=== PATIENT | male | born 1955 | race African-American/Black ===

== ENCOUNTER → 2018-06-10 09:36 | Outpatient (CLI) | payer BC, OTHER, SELFPAY ==
[2018-06-10 14:06] LABS: Basophils # 0.1 K/mm3 (0-0.2); Basophils % 1.5 % (0.1-2.0); Eosinophils # 0.2 K/mm3 (0.0-0.4); Eosinophils % 3.3 % (0.1-12.0); Hematocrit 44.7 % (42.0-52.0); Hemoglobin 14.7 g/dL (14.1-18.0); Lymphocytes # 2.3 K/mm3 (0.7-4.5); Lymphocytes % 39.8 K/mm3 (10-50); Mean Corpuscular HGB Conc 32.9 g/dL (31.8-35.4); Mean Corpuscular Hemoglobin 28.6 pg (27.0-31.2); Mean Platelet Volume 8.2 fl (7.4-10.4); Monocytes # 0.5 K/mm3 (0.1-1.0); Monocytes % 7.9 % (1.7-9.3); Neutrophils # 2.7 K/mm3 (1.8-7.8); Neutrophils % 47.5 % (37.0-80.0); Platelet Count 261 K/mm3 (142-424); Red Blood Count 5.14 M/mm3 (4.60-6.20); Red Cell Distribution Width 13.5 % (11.5-17.5); White Blood Count 5.7 K/mm3 (4.8-10.8)
[2018-06-10 14:13] LABS: Alanine Aminotransferase 60 U/L (12-78); Albumin/Globulin Ratio 1.1 (1.1-1.8); Alkaline Phosphatase 97 U/L (46-116); Aspartate Amino Transferase 26 U/L (15-37); Bilirubin,Total 0.5 mg/dL (0.2-1.0); Blood Urea Nitrogen 12 mg/dL (7-18); Calcium 9.2 mg/dL (8.5-10.1); Carbon Dioxide 27 mmol/L (21.0-32.0); Chloride 102 mmol/L (98-107); Chol/HDL Ratio 3.8 (1-3.5); Cholesterol 179 mg/dL (140-200); Creatinine,Serum 1.31 mg/dL (0.70-1.30); Estimated Glomerular Filt Rate 55 ml/min (>60); GFR (African American) 67 ML/MIN (>60); Globulin 3.7 gm/dl (1.3-3.2); Glucose 94 mg/dL (74-106); HDL Cholesterol 47 mg/dL (27-67); LDL Cholesterol 100 mg/dL (0-130); Sodium 139 mmol/L (136-145); T4 (Thyroxine) 7.5 ug/dl (4.7-13.3); Total Protein,Serum 7.7 gm/dL (6.4-8.2); Triglycerides 161 mg/dL (30-200); VLDL Cholesterol 32 mg/dL (0-40)
[2018-06-11 20:05] LABS: PSA, Free 0.43 ng/mL; Prostate Specific Ag 1.5 ng/mL (0.0-4.0); Vitamin D 25 Hydroxy 20.1 ng/mL (30.0-100.0)
== END ==
PROVIDERS: Visit Provider Physician Assistant
DX: E78.5 Hyperlipidemia, unspecified (principal); I10 Essential (primary) hypertension
CPT/HCPCS: 80053; 80061; 82652; 84153; 84154; 84436; 84443; 85025

== ENCOUNTER → 2018-06-25 14:18 | Outpatient (CLI) | payer BC, OTHER, SELFPAY ==
--- NOTE | 2018-06-25 14:25 | MR_ITS ---
MR lumbar spine wo con, MR 3-d myelogram/MRCP HISTORY: Low back pain . Bilateral leg pain, bilateral leg and feet numbness and cramping. Prior back surgery . ITS.REASON: lumbago with sciatica h/o fusion ORDERING PHYSICIAN: HTAD Cabrera PATIENT AGE: 62 years Comparison: None TECHNIQUE: Standard multiplanar multiecho sequences are performed without contrast. 3-D MIP and myelographic images are also rendered and reviewed FINDINGS: There is normal alignment. There is metallic artifact at T11 with posterior interpedicular screws at that region causing moderate amount of artifact The spinal cord ends at L1. There is mild degenerative disc disease at T11-T12 with prominence of the posterior longitudinal ligament. This disc space is not well delineated due to overlying artifact and may be better evaluated with CT if clinically warranted. L1-L2, L2-L3 have an unremarkable appearance. L3-L4: Bulging disc. There is a small left paracentral disc osteophyte complex causing moderate to severe left-sided lateral recess narrowing. There is facet and ligamentum flavum hypertrophy with moderate to severe right-sided foraminal narrowing and moderate left foraminal narrowing. There is transverse narrowing of the canal at this level from the facet and ligamentum hypertrophy at approximately 9 mm. There is some bunching of the nerve roots superior to this region as may be seen with spinal stenosis L4-L5: Moderate facet and ligamentum flavum hypertrophy with mild bulging disc with transverse narrowing of the canal at 9 mm with moderate to severe right foraminal narrowing and moderate left foraminal narrowing. L5-S1: Mild concentric bulging disc along with moderate facet and ligamentum flavum hypertrophy with severe bilateral foraminal narrowing. IMPRESSION: 1. Postsurgical changes at T11 and T12. 2. L3-L4: Bulging disc. There is a small left paracentral disc osteophyte complex causing moderate to severe left-sided lateral recess narrowing. There is facet and ligamentum flavum hypertrophy with moderate to severe right-sided foraminal narrowing and moderate left foraminal narrowing. There is transverse narrowing of the canal at this level from the facet and ligamentum hypertrophy at approximately 8 mm. There is some bunching of the nerve roots superior to this region as may be seen with spinal stenosis. 3. L4-L5: Moderate facet and ligamentum flavum hypertrophy with mild bulging disc with transverse narrowing of the canal at 9 mm with moderate to severe right foraminal narrowing and moderate left foraminal narrowing. 4. L5-S1: Mild concentric bulging disc along with moderate facet and ligamentum flavum hypertrophy with severe bilateral foraminal narrowing
== END ==
PROVIDERS: PCP Physician Assistant; Visit Provider Physician Assistant
DX: M54.41 Lumbago with sciatica, right side (principal); M54.42 Lumbago with sciatica, left side
CPT/HCPCS: 72148; 76376

== ENCOUNTER → 2019-04-05 18:05 | Outpatient (CLI) | payer BC, OTHER, SELFPAY ==
[2019-04-05 18:27] LABS: Basophils # 0.1 K/mm3 (0-0.2); Basophils % 1.5 % (0.1-2.0); Eosinophils # 0.2 K/mm3 (0.0-0.4); Eosinophils % 3.4 % (0.1-12.0); Hematocrit 46.3 % (42.0-52.0); Hemoglobin 15.2 g/dL (14.1-18.0); Lymphocytes # 2.4 K/mm3 (0.7-4.5); Lymphocytes % 45.3 % (10-50); Mean Corpuscular HGB Conc 32.9 g/dL (31.8-35.4); Mean Corpuscular Hemoglobin 29.1 pg (27.0-31.2); Mean Corpuscular Volume 88.5 fl (80-94); Mean Platelet Volume 9.6 fl (7.4-10.4); Monocytes # 0.4 K/mm3 (0.1-1.0); Monocytes % 8.1 % (1.7-9.3); Neutrophils # 2.3 K/mm3 (1.8-7.8); Neutrophils % 41.7 % (37.0-80.0); Platelet Count 241 K/mm3 (142-424); Red Blood Count 5.23 M/mm3 (4.60-6.20); Red Cell Distribution Width 13.5 % (11.5-17.5); White Blood Count 5.4 K/mm3 (4.8-10.8)
[2019-04-05 18:54] LABS: Alanine Aminotransferase 48 U/L (12-78); Albumin/Globulin Ratio 1.1 (1.1-1.8); Alkaline Phosphatase 87 U/L (46-116); Aspartate Amino Transferase 27 U/L (15-37); Bilirubin,Total 0.5 mg/dL (0.2-1.0); Blood Urea Nitrogen 12 mg/dL (7-18); Calcium 9.2 mg/dL (8.5-10.1); Carbon Dioxide 27 mmol/L (21.0-32.0); Chloride 102 mmol/L (98-107); Chol/HDL Ratio 3.9 (1-3.5); Cholesterol 176 mg/dL (140-200); Creatinine,Serum 1.23 mg/dL (0.70-1.30); Estimated Glomerular Filt Rate 59 ml/min (>60); GFR (African American) 72 ML/MIN (>60); Globulin 3.6 gm/dl (1.3-3.2); Glucose 85 mg/dL (74-106); HDL Cholesterol 45 mg/dL (27-67); LDL Cholesterol 97 mg/dL (0-130); Sodium 141 mmol/L (136-145); T4 (Thyroxine) 6.2 ug/dl (4.7-13.3); Thyroid Stimulating Hormone 1.88 uIU/ml (0.358-3.740); Total Protein,Serum 7.6 gm/dL (6.4-8.2); Triglycerides 169 mg/dL (30-200); VLDL Cholesterol 34 mg/dL (0-40)
[2019-04-07 17:50] LABS: PSA, Free 0.69 ng/mL; Prostate Specific Ag 2.3 ng/mL (0.0-4.0); Vitamin D 25 Hydroxy 41.8 ng/mL (30.0-100.0)
[2019-04-08 06:23] LABS: Neisseria gonorrhoeae, NAA Negative (Negative)
== END ==
PROVIDERS: Visit Provider Physician Assistant
DX: I10 Essential (primary) hypertension (principal); E78.5 Hyperlipidemia, unspecified; Z72.51 High risk heterosexual behavior; E55.9 Vitamin D deficiency, unspecified; Z12.5 Encounter for screening for malignant neoplasm of prostate
CPT/HCPCS: 80053; 80061; 82652; 84153; 84154; 84436; 84443; 85025; 87491; 87591

== ENCOUNTER → 2019-06-03 14:37 | Outpatient (CLI) | payer BC, OTHER, SELFPAY ==
--- NOTE | 2019-06-03 15:07 | ECG_ITS ---
APPROVED REPORT Exam: Resting ECG HR:52 bpm ECG Measurements Heart Rate 52 AXES MS 222 P 59 QRSd 90 QRS 71 QT 428 T 39 QTc 398 <Conclusion> Sinus bradycardia with 1st degree AV block Otherwise normal ECG Electronically signed by : Harman Stanford, 06/05/2019 07:53:19
[2019-06-03 15:31] LABS: Basophils # 0.1 K/mm3 (0-0.2); Basophils % 1.4 % (0.1-2.0); Eosinophils # 0.3 K/mm3 (0.0-0.4); Eosinophils % 4.1 % (0.1-12.0); Hematocrit 42.2 % (42.0-52.0); Hemoglobin 14.6 g/dL (14.1-18.0); Lymphocytes # 2.9 K/mm3 (0.7-4.5); Lymphocytes % 42.9 % (10-50); Mean Corpuscular HGB Conc 34.7 g/dL (31.8-35.4); Mean Corpuscular Hemoglobin 30.3 pg (27.0-31.2); Mean Corpuscular Volume 87.3 fl (80-94); Monocytes # 0.5 K/mm3 (0.1-1.0); Monocytes % 6.8 % (1.7-9.3); Neutrophils % 44.7 % (37.0-80.0); Platelet Count 244 K/mm3 (142-424); Red Blood Count 4.84 M/mm3 (4.60-6.20); Red Cell Distribution Width 13.2 % (11.5-17.5); White Blood Count 6.7 K/mm3 (4.8-10.8)
[2019-06-03 15:41] LABS: Anion Gap 10.7 mEq/L (5-15); Blood Urea Nitrogen 12 mg/dL (7-18); Calcium 9.2 mg/dL (8.5-10.1); Carbon Dioxide 30 mmol/L (21.0-32.0); Chloride 102 mmol/L (98-107); Creatinine,Serum 1.35 mg/dL (0.70-1.30); Estimated Glomerular Filt Rate 53 ml/min (>60); GFR (African American) 65 ML/MIN (>60); Glucose 97 mg/dL (74-106); Potassium 3.7 mmoL/L (3.5-5.1); Sodium 139 mmol/L (136-145)
== END ==
PROVIDERS: Visit Provider Surgery
DX: K60.3 Anal fistula (principal)
CPT/HCPCS: 36415; 80048; 85025; 93005

== ENCOUNTER → 2019-11-15 14:38 | Outpatient (CLI) | payer BC, OTHER, SELFPAY ==
[2019-11-16 08:43] LABS: Basophils # 0.1 K/mm3 (0-0.2); Basophils % 1.4 % (0.1-2.0); Eosinophils # 0.2 K/mm3 (0.0-0.4); Eosinophils % 2.4 % (0.1-12.0); Hematocrit 46.4 % (42.0-52.0); Lymphocytes # 2.5 K/mm3 (0.7-4.5); Lymphocytes % 37.1 % (10-50); Mean Corpuscular HGB Conc 32.3 g/dL (31.8-35.4); Mean Corpuscular Hemoglobin 29.4 pg (27.0-31.2); Mean Platelet Volume 10.2 fl (7.4-10.4); Monocytes # 0.4 K/mm3 (0.1-1.0); Monocytes % 6.7 % (1.7-9.3); Neutrophils # 3.5 K/mm3 (1.8-7.8); Neutrophils % 52.4 % (37.0-80.0); Platelet Count 239 K/mm3 (142-424); Red Cell Distribution Width 12.9 % (11.5-17.5); White Blood Count 6.6 K/mm3 (4.8-10.8)
[2019-11-16 09:40] LABS: Alanine Aminotransferase 35 U/L (21-72); Albumin Level 3.8 g/dL (3.4-5.0); Albumin/Globulin Ratio 1.1 (1.1-1.8); Alkaline Phosphatase 91 U/L (46-116); Anion Gap 12.7 mEq/L (5-15); Aspartate Amino Transferase 19 U/L (15-37); Bilirubin,Total 0.4 mg/dL (0.2-1.0); Blood Urea Nitrogen 14 mg/dL (7-18); Carbon Dioxide 29 mmol/L (21.0-32.0); Chloride 104 mmol/L (98-107); Chol/HDL Ratio 3.9 (1-3.5); Cholesterol 161 mg/dL (140-200); Estimated Glomerular Filt Rate 56 ml/min (>60); GFR (African American) 67 ML/MIN (>60); Globulin 3.4 gm/dl (1.3-3.2); Glucose 97 mg/dL (74-106); HDL Cholesterol 41 mg/dL (27-67); LDL Cholesterol 83 mg/dL (0-130); Potassium 3.7 mmoL/L (3.5-5.1); Sodium 142 mmol/L (137-145); Thyroid Stimulating Hormone 1.16 uIU/ml (0.358-3.740); Total Protein,Serum 7.2 g/dL (6.4-8.2); Triglycerides 183 mg/dL (30-200); VLDL Cholesterol 37 mg/dL (0-40)
[2019-11-16 09:55] LABS: T4 (Thyroxine) 6.3 ug/dl (4.7-13.3)
[2019-11-17 16:29] LABS: PSA, Free 0.56 ng/mL; Prostate Specific Ag 1.9 ng/mL (0.0-4.0); Vitamin D 25 Hydroxy 63.1 ng/mL (30.0-100.0)
== END ==
PROVIDERS: Visit Provider Physician Assistant
DX: Z87.891 Personal history of nicotine dependence (principal); Z12.2 Encounter for screening for malignant neoplasm of respiratory organs; M54.42 Lumbago with sciatica, left side; I10 Essential (primary) hypertension; E78.5 Hyperlipidemia, unspecified; J30.9 Allergic rhinitis, unspecified
CPT/HCPCS: 80053; 80061; 82652; 84153; 84154; 84436; 84443; 85025

== ENCOUNTER → 2019-11-23 08:08 | Outpatient (CLI) | payer BC, OTHER, SELFPAY ==
--- NOTE | 2019-11-23 08:08 | CT_ITS ---
PROCEDURE: CT LUNG SCREENING CLINICAL INDICATION: CT lung screening; 30 year PPD smoker COMPARISON: No exams were available for comparison TECHNIQUE: The exam was performed on a GE Light Speed [address] scanner using 2.90 mGy CTDI. A low dose helical CT CHEST was performed on a multi-detector scanner. All CT scans at the facility use one or more dose reduction, viz: automated exposure control, ma/kV adjustment per patient size (including targeted exams where dose is matched to indication, i.e. head), or iterative reconstruction technique. The LDCT was performed in a facility that meets the criteria for the screening program. Data regarding this exam was submitted to ACR which is an approved registry. The order for this exam indicates that it came as a result of a lung cancer screening counseling shard decision-making visit that included all the elements required of such a visit including smoking cessation. The radiologist interpreting this exam meets the CMS criteria for the LDCT lung cancer screening program. The exam is reported using the Lung-RADS classification scale and reported to the ACR registry. NOTE: This study was performed for the specific purposes of lung cancer screening and is not an alternative to diagnostic chest CT. RADIATION DOSE: CTDI vol(CT dose Index-volume) = 2.90mG DLP (Dose Length Product) = 96.38 mGcm Lung Rads Category: One FINDINGS: There is a calcified granuloma in the lingula. Calcified left hilar lymph nodes are also noted findings compatible with healed granulomatous disease. There is no noncalcified pulmonary nodule. There is mixed fat and soft tissue density in the anterior mediastinum in the thymic bed felt to represent thymic hyperplasia. Beam hardening artifact associated with metallic reduction rods and bi pedicular screws at the lower thoracic spine are noted. OTHER FINDINGS: There is enlargement of the left adrenal gland measuring up to 2.5 centimeters with Hounsfield unit measurement -7 which would be most compatible with benign adenoma. IMPRESSION: No pulmonary nodules suspicious for malignancy. Continue annual screening low-dose CT in 12 months. 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 Dictated by: Reed Eason 11/23/2019 10:10 Electronically signed by Reed Eason in [place] 11/23/2019 10:10
== END ==
PROVIDERS: PCP Physician Assistant; Visit Provider Physician Assistant
DX: Z87.891 Personal history of nicotine dependence (principal); Z12.2 Encounter for screening for malignant neoplasm of respiratory organs

== ENCOUNTER → 2020-09-27 12:50 | Outpatient (CLI) | payer MEDICARE, BC, OTHER, SELFPAY | PROVIDERS: PCP Physician Assistant; Visit Provider Physician Assistant | DX: Z03.818 Encounter for observation for suspected exposure to other biological agents ruled out (principal) | CPT/HCPCS: U0003 ==

== ENCOUNTER 2020-10-16 13:00 | Outpatient (RCR) | payer MEDICARE, BC, OTHER, SELFPAY ==
--- NOTE | 2020-10-16 14:44 | HMH.PTOPEV ---
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 Pt reports L>R LBP, w/ intermittent BLE radicular s/s . PMH: lumbar fusion sx. 2017, lumbar rhizotomy 2018. 'I wanna get back to exercising, but it seems like everything I try makes me hurt worse'. Chief Complaint Pain,Stiff,Paresthesia, Weakness Symptom Type Ache,Sharp,Dull Symptoms Relieved By Heat Symptoms Aggravated By Sitting,Standing,Walking Prior Functional Limitations Lifting,Housework,Standing, Sitting,Recreation Activity, Walking Current Functional Limitations Lifting,Housework,Standing, Sitting,Recreation Activity, Walking Symptom Description Constant but Variable Level of pain today (0-10) 4 Pain scale - at its best (0-10) 3 Pain scale - at its worst (0-10) 7 Lumbopelvic Eval Posture Thoracic Spine Posture Standing Position Neutral Lumbar Spine Posture Standing Position Neutral Assistive device Assistive Devices None / NA Gait Observation General Gait Pattern Observation Antalgic Gait Palapation tenderness bilateral lumbar spinal tenderness Yes: 2/4 paraspinal tenderness Yes: 2-3/4 buttock tenderness Yes: 1/4 Accessory Movement L-spine Vertebrae Accessory Movements Central [facility] [place] that Elicit Symptoms L3 bilateral L4 bilateral Range of Motion Lumbar Spine Active Flexion Range of 0-80 Motion (degrees) Lumbar Spine Active Extension Range of 0-10 Motion (degrees) Left Lumbar Spine Lateral Flexion Active 0-20 Range of Motion (degrees) Right Lumbar Spine Lateral Flexion 0-20 Active Range of Motion (degrees) Lumbar Spine ROM Limitations Pain Manual Muscle Test Left Knee Extension Strength Grade 5 Normal Knee Flexion Strength Grade 5 Normal Hip Flexion Strength Grade 5 Normal Hip External Rotation Strength Grade 5 Normal Hip Internal Rotation Strength Grade 5 Normal Extensor Hallucis Longus Strength Grade 5 Normal Ankle Dorsiflexi
== END 2020-10-16 13:05 | disposition home or self-care (01) ==
LOC: PT 13:00
PROVIDERS: PCP Physician Assistant; Visit Provider Physician Assistant
DX: M54.42 Lumbago with sciatica, left side (principal); M54.41 Lumbago with sciatica, right side
CPT/HCPCS: 97010; 97014; 97110; 97163; G0283

== ENCOUNTER → 2020-10-16 14:30 | Outpatient (CLI) | payer MEDICARE, BC, OTHER, SELFPAY ==
--- NOTE | 2020-10-16 14:30 | MR_ITS ---
PROCEDURE: MR LUMBAR SPINE WO CON CLINICAL INDICATION: LBP with BLE radiculopathy HX BACK SRUGERY 2019. INTERMITTENT LBP WITH BILATERAL LEG PAIN, NUMBNESS, AND TINGLING. COMPARISON: MR SPLUMBWO MR lumbar spine wo con from 06/25/2018 TECHNIQUE: Standard multiplanar multiecho sequences are performed without contrast. 3-D MIP and myelographic images are also rendered and reviewed FINDINGS: There are postsurgical changes with inter pedicular screws at T12 and L1 with significant artifact at that area. There is kyphosis of the lumbar spine at that level. Artifact obscures detail of the cord. There is some that area is incompletely evaluated secondary to artifact. L1-L2: Facet hypertrophic change. L2-L3: Facet hypertrophic change with mild bilateral lateral recess narrowing L3-L4: Degenerative disc disease with bulging disc along with facet and ligamentum hypertrophy which is severe in nature causing canal stenosis and severe bilateral lateral recess narrowing and moderate to severe bilateral foraminal narrowing. The canal stenosis appears worse due to the ligamentum hypertrophy. Previously noted disc protrusion on the left at L3-L4 is not demonstrated on today's exam L4-5: Bulging disc with severe facet and ligamentum hypertrophy and severe bilateral lateral recess narrowing and moderate to severe bilateral foraminal narrowing not significantly changed L5-S1: Bulging disc with facet and ligamentum hypertrophy with severe bilateral foraminal narrowing not significantly changed IMPRESSION: Multilevel lumbar spondylosis with postsurgical changes. Severe facet and ligamentum hypertrophy are present with bulging disc resulting in canal stenosis lateral recess narrowing and foraminal narrowing. Please see above for detailed description at each level. The canal stenosis is most severe at L3-L4 and L4-5. Dictated by: Duncan Mayes MD 10/18/2020 12:31 Duncan Mayes MD in [place] 10/18/2020 12:31
== END ==
PROVIDERS: PCP Physician Assistant; Visit Provider Physician Assistant
DX: M54.41 Lumbago with sciatica, right side (principal); M54.42 Lumbago with sciatica, left side
CPT/HCPCS: 72148; 76376

== ENCOUNTER → 2020-10-18 14:33 | Outpatient (CLI) | payer MEDICARE, BC, OTHER, SELFPAY ==
[2020-10-20 07:52] LABS: Covid-19 Nasal PCR Sendout P&C NEGATIVE
== END ==
PROVIDERS: PCP Physician Assistant; Visit Provider Emergency Medicine
DX: Z11.52 Encounter for screening for COVID-19 (principal)
CPT/HCPCS: U0004

== ENCOUNTER 2021-02-10 17:14 | Emergency (ER) | payer MEDICARE, BC, OTHER, SELFPAY ==
[2021-02-10 17:15] VITALS: BP 155/99; PULSE 73; RESP 18; TEMP 37.1; O2SAT 96; BMI 34.6
--- NOTE | 2021-02-10 17:28 | HMH.EDGENADL ---
ED Disposition Clinical Impression: Constipation Qualifiers: Constipation type: unspecified constipation type Qualified Code(s): K59.00 - Constipation, unspecified Disposition: Home, Self-Care Condition on Discharge: Fair Instructions: DI for Acute Abdominal Pain Referrals: Shannan Cassidy PA [Primary Care Provider] - 3 days Time of Disposition: 19:04 - Critical Care Critical Care Time: No Attestation: On , the high probability of a clinically significant, sudden or life threatening deterioration of the following system(s) required my full and direct attention, intervention and personal management. The time I documented below is in addition to time spent performing reported procedures but includes the following listed in this critical care notation. Medical Decision Making - Medical Records Medical records reviewed: Yes: I reviewed the patient's medical records. - Kayden Inquiry Pt receiving controlled substance: No Vital Signs: 02/10/21 17:15 Temperature 98.7 F Temperature Source Oral Pulse Rate [Radial] 73 Respiratory Rate 18 Blood Pressure [Right Arm] 155/99 H Blood Pressure Mean [Right Arm] 117 Blood Pressure Position [Right Arm] Sitting 02 Sat by Pulse Oximetry 96 Oxygen Delivery Method Room Air - Lab Data Lab results reviewed: Yes: I reviewed the patient's lab results. Lab Results 02/10/21 17:40: WBC 8.9, RBC 5.15, Hgb 15.0, Hct 44.2, MCV 85.8, MCH 29.1, MCHC 33.9, RDW 13.6, Plt Count 224, MPV 8.0, Neut % (Auto) 59.0, Lymph % (Auto) 30.3, Morgan % (Auto) 6.2, Eos % (Auto) 3.5, Baso % (Auto) 0.9, Neut # (Auto) 5.2, Lymph # (Auto) 2.7, Morgan # (Auto) 0.6, Eos # (Auto) 0.3, Baso # (Auto) 0.1 02/10/21 17:40: Sodium 136, Potassium 3.5, Chloride 99, Carbon Dioxide 28, Anion Gap 12.5, BUN 15, Creatinine 1.20, Estimated Creat Clear 82, Estimated GFR 61, Est GFR ( Amer) 74, Glucose 131 H, Calcium 9.0, Total Bilirubin 0.5, AST 29, ALT 45, Alkaline Phosphatase 79, Troponin I < 0.01, Total Protein 7.1, Albumin 4.3, Globulin 2.8, Albumin/Globulin Ratio 1.5, Lipase 33 Result diagrams: 02/10/21 17:40 02/10/21 17:40 Orders (Tests/Meds): ED MEDICATIONS Discontinued Medications Generic Name Dose Route Start Last Admin Trade Name Craig PRN Reason Stop Dose Admin Iopamidol 75 ml 02/10/21 18:20 02/10/21 18:20 Iopamidol-370 (76%);100ml Bottle IV 02/10/21 18:21 75 ml ONCE ONE Administration Sodium Chloride 10 ml 02/10/21 18:20 02/10/21 18:20 Sodium Chloride 0.9% 10ml Syr (Rad Only) IV 02/10/21 18: 10 ml ONCE ONE Administration - CT Data CT Scan: Abdomen, Pelvis Time Received: 18:54 Preliminary Findings: Normal/NAD - ECG Data Tracing #1 74 bpm, normal sinus rhythm, no ST elevation or depression, no ectopy, normal intervals. ECG initial impression date: 02/10/21 ECG initial impression time: 17:52 Medical Decision Narrative: 65yo M presents the emergency department for abdominal pain. Patient no acute distress on initial evaluation. EKG and labs reviewed. Patient labs are unremarkable. CT abdomen pelvis with IV contrast is obtained and shows no acute findings. Results were shared with patient at bedside. Encourage patient to try [id number] laxative. Patient voiced understanding and agreed with the plan. He is appropriate stable for discharge home at this time. General Adult HPI - General Stated complaint: stomach aches/pains Time Seen by Provider: 02/10/21 17:28 Mode of Arrival: Ambulatory - History of Present Illness HPI narrative: 65yo M presents for abdominal pain. Patient reports he is not had normal bowel movement since approximately . States his bowels are always regular. He denies any fever, nausea/vomiting/diarrhea. He states his belly feels distended. He denies any previous episodes similar to this. Reports normal appetite. - Related Data Home Medications Medication Instructions Recorded Confirmed Loratadine [
--- NOTE | 2021-02-10 17:48 | ECG_ITS ---
APPROVED REPORT Exam: Resting ECG HR:74 bpm ECG Measurements Heart Rate 74 AXES AL 208 P 63 QRSd 90 QRS 23 QT 412 T 20 QTc 457 Conclusion Normal sinus rhythm Normal ECG Electronically signed by : Harman Stanford, 02/11/2021 20:27:57
[2021-02-10 17:50] LABS: Basophils # 0.1 K/mm3 (0-0.2); Basophils % 0.9 % (0.1-2.0); Eosinophils # 0.3 K/mm3 (0.0-0.4); Eosinophils % 3.5 % (0.1-12.0); Hematocrit 44.2 % (42.0-52.0); Lymphocytes # 2.7 K/mm3 (0.7-4.5); Lymphocytes % 30.3 % (10-50); Mean Corpuscular HGB Conc 33.9 g/dL (31.8-35.4); Mean Corpuscular Hemoglobin 29.1 pg (27.0-31.2); Mean Corpuscular Volume 85.8 fl (80-94); Monocytes # 0.6 K/mm3 (0.1-1.0); Monocytes % 6.2 % (1.7-9.3); Neutrophils # 5.2 K/mm3 (1.8-7.8); Platelet Count 224 K/mm3 (142-424); Red Blood Count 5.15 M/mm3 (4.60-6.20); Red Cell Distribution Width 13.6 % (11.5-17.5); White Blood Count 8.9 K/mm3 (4.8-10.8)
[2021-02-10 17:54] LABS: Chloride 99 mmol/L (98-107); Potassium 3.5 mmoL/L (3.5-5.1); Sodium 136 mmol/L (136-145)
[2021-02-10 17:56] LABS: Alanine Aminotransferase 45 U/L (12-78); Alkaline Phosphatase 79 U/L (38-126); Anion Gap 12.5 mEq/L (5-15); Aspartate Amino Transferase 29 U/L (17-59); Bilirubin,Total 0.5 mg/dl (0.2-1.3); Blood Urea Nitrogen 15 mg/dl (9-20); Carbon Dioxide 28 mmol/L (22.0-30.0); Creatinine Clearance Estimated 82 mL/min (50-200); Estimated Glomerular Filt Rate 61 ml/min (>60); GFR (African American) 74 ML/MIN (>60); Lipase 33 U/L (23-300)
[2021-02-10 17:57] LABS: Albumin Level 4.3 g/dl (3.5-5.0); Albumin/Globulin Ratio 1.5 (1.1-1.8); Globulin 2.8 g/dL (1.3-3.2); Glucose 131 mg/dl (74-100); Total Protein,Serum 7.1 g/dl (6.3-8.2)
--- NOTE | 2021-02-10 17:58 | CT_ITS ---
PROCEDURE INFORMATION: Exam: CT Abdomen And Pelvis With Contrast Exam date and time: 02/10/21 05:58 PM Age: 65 years old Clinical indication: Abdominal tenderness and constipation; Abdominal pain; Generalized; Additional info: Distention, pain upper central abd x 3 days, constipation TECHNIQUE: Imaging protocol: Computed tomography of the abdomen and pelvis with contrast. Radiation optimization: All CT scans at this facility use at least one of these dose optimization techniques: automated exposure control; mA and/or kV adjustment per patient size (includes targeted exams where dose is matched to clinical indication); or iterative reconstruction. Contrast material: ISOVUE; Contrast volume: 75 ml; Contrast route: IV; COMPARISON: No relevant prior studies available. FINDINGS: Tubes, catheters and devices: None noted. Lungs: Lung bases appear clear. Heart: No significant coronary calcifications. No cardiomegaly. No significant pericardial effusion. Liver: Normal. No mass. Gallbladder and bile ducts: Normal. No calcified stones. No ductal dilation. Pancreas: Normal. No ductal dilation. Spleen: Normal. No splenomegaly. Adrenal glands: Normal. No mass. Kidneys and ureters: Normal. No hydronephrosis. Stomach and bowel: Unremarkable. No obstruction. No mucosal thickening. Appendix: No evidence of appendicitis. Intraperitoneal space: Unremarkable. No free air. No significant fluid collection. Retroperitoneal space: No significant retroperitoneal inflammatory changes are noted. Vasculature: Unremarkable. No abdominal aortic aneurysm. Lymph nodes: Unremarkable. No enlarged lymph nodes. Urinary bladder: Unremarkable as visualized. Reproductive: Unremarkable as visualized. Bones/joints: PLIF T12-L1. No acute fracture. Soft tissues: Unremarkable. IMPRESSION: No acute findings.
[2021-02-10 18:10] LABS: Troponin I < 0.01 ng/ml (0.00-0.034)
[2021-02-10 19:30] VITALS: BP 123/74; PULSE 62; RESP 18; O2SAT 97
[2021-02-10 19:39] VITALS: BP 122/78; PULSE 78; RESP 16; TEMP 36.6; O2SAT 98
== END 2021-02-10 19:40 | disposition home or self-care (01) ==
PROVIDERS: Emergency Provider Family Medicine; PCP Physician Assistant
DX: K59.00 Constipation, unspecified (principal); K21.9 Gastro-esophageal reflux disease without esophagitis; I48.91 Unspecified atrial fibrillation; I10 Essential (primary) hypertension; E78.5 Hyperlipidemia, unspecified; Z87.891 Personal history of nicotine dependence; Z79.899 Other long term (current) drug therapy
CPT/HCPCS: 74177; 80053; 83690; 84484; 85025; 93005; 99282; Q9967

== ENCOUNTER → 2021-02-12 13:53 | Outpatient (CLI) | payer MEDICARE, BC, OTHER, SELFPAY ==
--- NOTE | 2021-02-12 13:54 | CA_ITS ---
APPROVED REPORT Exam: Exercise Treadmill Technologist: prachi mckoy, Ht: 5 ft 6 in Wt: 217 lbs BSA: 2.07 m2 HR: 67 bpm BP: 126/78 mmHg Indications: SOB, Left arm pain Medical History Medications: Losartan,,,,, HCTZ,,,,, [place],,,,, Vitamin D,,,,, LoraTADINE,,,,, TriaMterene,,,,, Certirizine,,,,, Simvasatin,,,,, Terbinafine,,,,, Armonair diginhaler,,,,, Allergies: Lisinopril Cardiac Risk Factors: HTN, Hyperlipidemia, FHX of CAD, Smoking Stress Test Details Test: Curt HR Resting HR: 74 bpm Max Heart Rate (APMHR): 155.814459 bpm Max HR Achieved: 152 bpm Target HR (85% APMHR): 131.534248 bpm % of APMHR: 98.06 Recovery HR: 103 bpm BP Resting BP: 126/78 mmHg Max BP: 170/88 mmHg Recovery BP: 170.0/88.0 mmHg ECG Resting ECG: NSR, Inferior ST Segment sloping/ depression Clinical Reason for Termination: Dyspnea Exercise duration: 09:00 min Highest Stage Achieved: Stage 3: 3.4 mph at 14% grade. Exercise capacity: 10.1 METs Stress ECG Conclusion Symptoms: SOA, leg weakness, left shoulder discomfort. Rare PAC, PVC. 1mm ST Segment sloping/depression inferior, anterior, and lateral. Abnormal stress. Test Summary REST . . . . . . . Standing REST . . . . . . . Sitting REST 14:47 0.0 0.0 74 . 126/ 78 . . Stage 1 01:00 10.0 1.7 96 . . . . Stage 1 02:00 10.0 1.7 101 . . . . Stage 1 03:00 10.0 1.7 109 . 140/ 82 . . Stage 2 01:00 12.0 2.5 116 . . . . Stage 2 02:00 12.0 2.5 122 . . . . Stage 2 03:00 12.0 2.5 130 . 158/ 88 . . Stage 3 01:00 14.0 3.4 136 . . . . Stage 3 02:00 14.0 3.4 145 . . . . Stage 3 03:00 14.0 3.4 152 . 162/ 90 . Stop exercise at 09:00 RECOVERY 01:00 0.0 0.0 128 . . . . RECOVERY 02:00 0.0 0.0 110 . 170/ 88 . . RECOVERY 03:00 0.0 0.0 91 . 170/ 88 . . RECOVERY 04:00 0.0 0.0 94 . 170/ 88 . . RECOVERY 05:00 0.0 0.0 84 . 167/ 83 . . RECOVERY 06:00 0.0 0.0 83 . 167/ 83 . . RECOVERY 07:00 0.0 0.0 86 . 167/ 83 . . RECOVERY 07:33 0.0 0.0 84 . 144/ 75 . . Electronically signed by : Harman Stanford, 02/12/2021 18:13:03
--- NOTE | 2021-02-12 13:54 | CA_ITS ---
APPROVED REPORT EXAM: Comprehensive 2D, Doppler, and color-flow Echocardiogram Cnc Cutting Operator: Kaila Gill RT(R) Ht: 5 ft 5 in Wt: 208lbs BSA: 2.01 BP: 130/82 mmHg Indications: SOA, ex smoker, HTN, hyperlipidemia, AFIB 2D Dimensions LVOT 1.99 cm (M/F) 1.5-2.5 LVEF (Gan's) 50.30 % M: 52 - 72 LV Volume 63.80 mL M: 62 - 150 LV Volume Index 31.74 mL/m2 M: 34 - 74 LA Volume 24.90 mL LA Volume Index 12.38 mL/m2 (M/F) 16-34 M-Mode Dimensions RVDd 2.32 cm (0.9-2.6) LA Diam 3.59 cm (1.9-4.0) LVDd 4.36 cm (3.5-5.7) Ao Diam 2.91 cm (2.0-3.7) LVDs 3.29 cm (3.5-5.7) IVSd 0.68 cm (0.6-1.1) PWd 0.68 cm (0.6-1.1) EF (Teich) 49.00% FS 24.50% EDV (Teich) 85.80 mL ESV (Teich) 43.80 mL LV Diastology E Decel Time 180.00 (160-240 msec) E/A Ratio 0.8 MED E' 4.70 (< 7 cm/sec) E'/MED E' Ratio 11.30 (>14) LAT E' 5.40 (<10 cm/sec) E/LAT E' Ratio 9.83 (>14) Mitral Valve MV E Max Vadim. 53.00 (40-130 cm/s) MV A Velocity 66.00 (40-130 cm/s) E/A Ratio 0.81 MV Decel. Time 180.00 (160-240 ms) MV PHT 53.00 ms Left Ventricle Left atrium is mildly enlarged, left ventricle is normal size, mild concentric left ventricular hypertrophy, visually estimated ejection fraction 55% with no regional wall motion abnormality, grade 1 diastolic dysfunction seen without tissue Doppler evidence of raise left atrial pressure. Right Ventricle Right atrium and right ventricle are normal size and contractility. Aortic Valve Aortic valve is minimally thickened and fibrosed, there is no aortic stenosis or aortic insufficiency. Mitral Valve Mitral valve grossly normal, there is trace mitral regurgitation. Tricuspid Valve Tricuspid grossly normal, there is trace tricuspid regurgitation. Pulmonic Valve Pulmonic valve is poorly visualized. Great Vessels Aortic root is normal size. Pericardium No significant pericardial effusion noted. Conclusion 1. Mildly enlarged left atrium, normal left ventricular size, mild concentric left ventricular hypertrophy, visually estimated ejection fraction 55% with no regional wall motion abnormality, grade 1 diastolic dysfunction seen without tissue Doppler evidence of raise left atrial pressure. 2. Trace mitral and tricuspid regurgitation. 3. No significant pericardial effusion noted. Electronically signed by : Miguel Saeed, 02/12/2021 18:30:06
== END ==
PROVIDERS: PCP Physician Assistant; Visit Provider Nurse Practitioner Family
DX: R06.02 Shortness of breath (principal)
CPT/HCPCS: 93017; 93306

== ENCOUNTER → 2021-02-14 10:24 | Outpatient (CLI) | payer MEDICARE, BC, OTHER, SELFPAY ==
[2021-02-14 10:58] LABS: Basophils # 0.1 K/mm3 (0-0.2); Basophils % 1.1 % (0.1-2.0); Eosinophils # 0.2 K/mm3 (0.0-0.4); Eosinophils % 2.8 % (0.1-12.0); Hematocrit 46.3 % (42.0-52.0); Hemoglobin 15.5 g/dL (14.1-18.0); Lymphocytes # 2.5 K/mm3 (0.7-4.5); Lymphocytes % 32.6 % (10-50); Mean Corpuscular HGB Conc 33.4 g/dL (31.8-35.4); Mean Corpuscular Hemoglobin 29.4 pg (27.0-31.2); Mean Corpuscular Volume 87.9 fl (80-94); Mean Platelet Volume 8.1 fl (7.4-10.4); Monocytes # 0.5 K/mm3 (0.1-1.0); Neutrophils # 4.4 K/mm3 (1.8-7.8); Neutrophils % 56.5 % (37.0-80.0); Platelet Count 229 K/mm3 (142-424); Red Blood Count 5.27 M/mm3 (4.60-6.20); Red Cell Distribution Width 13.6 % (11.5-17.5); White Blood Count 7.7 K/mm3 (4.8-10.8)
[2021-02-14 11:49] LABS: Chloride 101 mmol/L (98-107); Potassium 4.3 mmoL/L (3.5-5.1); Sodium 136 mmol/L (136-145)
[2021-02-14 11:52] LABS: Anion Gap 11.3 mEq/L (5-15); Blood Urea Nitrogen 13 mg/dl (9-20); Carbon Dioxide 28 mmol/L (22.0-30.0); Estimated Glomerular Filt Rate 67 ml/min (>60); GFR (African American) 81 ML/MIN (>60)
[2021-02-14 11:53] LABS: Calcium 9.9 mg/dl (8.4-10.2); Glucose 114 mg/dl (74-100)
== END ==
PROVIDERS: Visit Provider Nurse Practitioner Family
DX: I20.9 Angina pectoris, unspecified (principal); E78.5 Hyperlipidemia, unspecified; Z01.818 Encounter for other preprocedural examination; I10 Essential (primary) hypertension; R06.00 Dyspnea, unspecified; R94.30 Abnormal result of cardiovascular function study, unspecified; Z11.52 Encounter for screening for COVID-19
CPT/HCPCS: 36415; 80048; 85025; U0003

== ENCOUNTER 2021-02-16 09:00 | Day surgery (SDC) | payer MEDICARE, BC, OTHER, SELFPAY ==
[2021-02-16] VITALS (10 sets, daily range): BP systolic 105–165; BP diastolic 53–97; PULSE 60–67; RESP 18–20; O2SAT 90–93; BMI 34.8
--- NOTE | 2021-02-16 07:16 | IR_ITS ---
APPROVED REPORT Patient Location: Outpatient Warp Tying Machine Tender: ROWENA Hammond RT (R) PROCEDURES Left heart catheterization Left ventriculogram Selective coronary angiogram INDICATION Unable to complete stress test, Angina pectoris, Informed consent was obtained prior to the procedure. COMPLICATIONS NONE Estimated Blood Loss: LESS THAN 10 ML TECHNIQUE One percent lidocaine used to anesthetize the right anterior aspect of the wrist. The right radial artery was accessed via the Seldinger technique. A 6 Cypriot sheath was placed in the right radial artery. 2.5 mg of verapamil, 800 mcg of nitroglycerin, 1mg Lidocaine and 5000 U Heparin were given through the arterial sheath. The trap catheter was also used to perform left heart catheterization, left ventriculogram and selective coronary angiogram. At the end of the procedure the sheath was removed good hemostasis was achieved using Traclet band, patient was transferred to the postop holding area in stable condition. ANGIOGRAPHIC RESULTS The left main artery Normal The left anterior descending artery Normal accompanied by AZRA II flow The circumflex artery Normal accompanied by AZRA II flow The right coronary artery Dominant normal accompanied by AZRA II flow The CARROLL ventriculogram reveals Hyperdynamic 75% The left ventricular end-diastolic pressure 15 mmHg IMPRESSION Normal coronary arteries with angiographic evidence of diffuse endothelial dysfunction which almost certainly accounts for patient's symptoms Hyperdynamic ventricle secondary to hypertensive heart disease also contributing to symptoms Borderline elevated LVEDP PLAN 1. Treatment of endothelial dysfunction 2. Treatment of hypertensive heart disease and diastolic dysfunction Electronically signed by : Randy Lee, 02/16/2021 10:30:43
== END 2021-02-16 12:30 | disposition home or self-care (01) ==
LOC: CATHLAB 09:02
PROVIDERS: PCP Physician Assistant; Visit Provider Internal Medicine
DX: E78.5 Hyperlipidemia, unspecified (principal); I11.9 Hypertensive heart disease without heart failure; I20.9 Angina pectoris, unspecified; R06.00 Dyspnea, unspecified; R94.30 Abnormal result of cardiovascular function study, unspecified; R07.9 Chest pain, unspecified; I48.91 Unspecified atrial fibrillation; Z87.891 Personal history of nicotine dependence; Z79.899 Other long term (current) drug therapy; Z88.8 Allergy status to other drugs, medicaments and biological substances
CPT/HCPCS: 93458; 99152; C1725; C1769; J1644; Q9967

== ENCOUNTER → 2021-03-21 14:14 | Outpatient (CLI) | payer MEDICARE, BC, OTHER, SELFPAY | PROVIDERS: Visit Provider Internal Medicine Gastroenterology | DX: Z01.812 Encounter for preprocedural laboratory examination (principal); Z20.822 Contact with and (suspected) exposure to COVID-19; Z12.11 Encounter for screening for malignant neoplasm of colon | CPT/HCPCS: U0003 ==

== ENCOUNTER 2021-03-23 09:09 | Day surgery (SDC) | payer MEDICARE, BC, OTHER, SELFPAY ==
[2021-03-13 12:52] VITALS: BMI 34.9
[2021-03-23] VITALS (7 sets, daily range): BP systolic 115–141; BP diastolic 67–93; PULSE 62–77; RESP 16; TEMP 36.5–36.6; O2SAT 91–97
--- NOTE | 2021-03-23 10:31 | HMH.ANESCL ---
[facility] Anesthesia Checklist - Patient Identification Patient Identification: Arm Band - Structural Data Admitted From: Home Planned Operative Procedure/s: Colonoscopy Consent for Planned Operative Procedure(s) Verified: Yes - NPO Status Verified Time NPO: 00:00 - Additional verifications Anesthesia Reactions: No Hx Blood Transfusions: No Blood Transfusion Reaction: No - Airway Assessment C-Spine Mobility Assessed: Yes TMJ Mobility Assessed: Yes Dentition: Good Dentition - Neurological Assessment Level of Consciousness: Awake Hx Seizures: No Numbness or tingling in extremities: No - Anesthesia Plan Anesthesia Risk discussed: Yes Anesthesia Plan: Verified ASA Class: III Anesthesia Type: MAC [facility] History I have reviewed the patient's past medical history: Yes Medical History: Reports:: Atrial Fibrillation, Gastroesophageal Reflux Disease(GERD), Hyperlipidemia, Hypertension Denies:: Cancer, Diabetes Mellitus Type 1, Diabetes Mellitus Type 2, Internal Pacemaker, MRSA, Seizures *Have you ever received a pneumonia vaccine?: Yes *Have you received a flu vaccine this season?: Yes Other Medical History: Denies: Blood Transfusion Reaction Anesthesia experience/problems:: None Other Surgeries: Yes: Bariatric Surgery, Cardiac Catheterization, Colonoscopy, Other. No: Pacemaker Amputation: No Fractures: No - *Social History Last grade of school completed: High school graduate Smoking Status: Former smoker Tobacco Type: cigarettes # Packs/Day (cigarettes): 1 #Yrs smoked (if former smoker): 25 Smoking End Date: 10 years ago Alcohol Intake: current Alcohol Intake Frequency:: holidays/special occasions only Substance Use Type: marijuana Last Used Substance: unknown *Occupational Status:: retired Housing: house Household Members: family *Travel in the last 8 weeks: None Family Hx:: No significant family history
--- NOTE | 2021-03-23 11:11 | P.PCN_ITS ---
[facility] [place] Procedure Note Procedure Note:: Colonoscopy Procedure Report: Colonoscopy with cold snare polypectomy Endoscopist: Marc Garcia II, MD Referring physician: LIZZY Abraham Date of Procedure: March 23, 2021 Equipment: Olympus 190 variable stiffness pediatric colonoscope Sedation: MAC sedation Indication: Mr. Song is a 65-year-old gentleman who is here for screening colonoscopy secondary to a personal history of colon polyps. He had a colonoscopy 5 years ago (in [place]) at which time 3 polyps were removed. He does state that his maternal uncle had colon cancer in his 70s. He does get some bloating. He reports no rectal bleeding, weight loss or change in bowel habits. He did have some upper abdominal pain about a month ago which quickly resolved. Procedure: Prior to the procedure, a history and physical exam was performed, and patient's medications and allergies were reviewed. The risks, benefits and alternatives of the sedation and procedure were discussed with the patient. All questions were answered and informed consent was obtained. The patient was brought to the procedure room. Patient identification and proposed procedure were verified by the physician and the nurse. The patient was placed in a left lateral decubitus position and the scope was passed under direct vision. Throughout the proced ure, the patient's blood pressure, pulse, and oxygen saturations were monitored continuously. The colonoscopy was accomplished without difficulty. The patient tolerated the procedure well. Findings: On digital rectal examination there was normal rectal tone. There were no external hemorrhoids. The colonoscope was introduced through the anal canal to the rectum and advanced to the cecum. The ileocecal valve and appendiceal orifice were identified. The scope was advanced a short distance into the ileum which appeared grossly normal. The scope was then withdrawn into the colon. There were 2 diminutive polyps (2 and 3 mm) which were removed via cold snare polypectomy. There were scattered diverticuli throughout the colon but more predominantly in the descending and sigmoid colon. The remainder of the colonic mucosa was normal. The rectum itself was normal. Upon retroflexion within the rectum there were grade 1-2 internal hemorrhoids. The preparation was excellent throughout with [place] Preparation Score of 9. The cecal time was 12 minutes. Impression: 1. Diminutive colonic polyps x2 2. Pandiverticulosis 3. Grade 1-2 internal hemorrhoids Plan: I will follow up the polyp pathology and recommend repeat colonoscopy again in 7-10 years based upon the polyp histology. I would encourage bulking fiber supplementation on a long-term daily maintenance basis.
== END 2021-03-23 12:14 | disposition home or self-care (01) ==
LOC: OUTP 09:13
PROVIDERS: PCP Physician Assistant; Visit Provider Internal Medicine Gastroenterology
PROC: 0DJD8ZZ Inspection of Lower Intestinal Tract, Via Natural or Artificial Opening Endoscopic (ICD-10-PCS; CPT 45378; principal; 2021-03-23 10:30)
DX: Z12.11 Encounter for screening for malignant neoplasm of colon (principal); Z86.010 Personal history of colon polyps; K63.5 Polyp of colon; K57.30 Diverticulosis of large intestine without perforation or abscess without bleeding; K64.0 First degree hemorrhoids; I48.91 Unspecified atrial fibrillation; K21.9 Gastro-esophageal reflux disease without esophagitis; E78.5 Hyperlipidemia, unspecified; I10 Essential (primary) hypertension; Z98.84 Bariatric surgery status; Z87.891 Personal history of nicotine dependence; Z88.8 Allergy status to other drugs, medicaments and biological substances
CPT/HCPCS: 45385; 88305; J2704

== ENCOUNTER 2021-04-12 13:00 | Outpatient (RCR) | payer MEDICARE, BC, OTHER, SELFPAY | END 2021-04-12 13:05 | disposition home or self-care (01) | LOC: PT 13:00 | PROVIDERS: PCP Physician Assistant; Visit Provider Physician Assistant | DX: M48.062 Spinal stenosis, lumbar region with neurogenic claudication (principal) | CPT/HCPCS: 97010; 97014; 97110; 97140; 97163; G0283 ==

== ENCOUNTER → 2021-08-22 13:31 | Outpatient (CLI) | payer MEDICARE, BC, OTHER, SELFPAY | PROVIDERS: PCP Physician Assistant; Visit Provider Nurse Practitioner | DX: U07.1 COVID-19 (principal) | CPT/HCPCS: C9803; U0003; U0005 ==

== ENCOUNTER 2021-11-21 17:52 | Emergency (ER) | payer MEDICARE, BC, OTHER, SELFPAY ==
--- NOTE | 2021-11-21 18:18 | ECG_ITS ---
APPROVED REPORT Exam: Resting ECG HR:60 bpm ECG Measurements Heart Rate 60 AXES MD 238 P 57 QRSd 92 QRS 51 QT 457 T 35 QTc 458 Conclusion SINUS RHYTHM WITH FIRST DEGREE AV BLOCK ABNORMAL ECG UNCONFIRMED REPORT Electronically signed by : Harman Stanford MD 11/21/2021 20:58:46
[2021-11-21 18:28] VITALS: BMI 35.6
[2021-11-21 19:07] VITALS: BP 121/79; PULSE 59; RESP 14; TEMP 36.6; O2SAT 96; BMI 35.6
--- NOTE | 2021-11-21 19:28 | XR_ITS ---
PROCEDURE INFORMATION: Exam: XR Chest Exam date and time: 11/21/2021 7:28 PM Age: 66 years old Clinical indication: Prior surgery; Surgery date: 6+ months; Surgery type: Back surgery; Patient HX: Dizziness, possible vertigo, hot flashes, sweaty. Non-smoker. TECHNIQUE: Imaging protocol: XR of the chest. Views: 2 views. COMPARISON: CT LUNG SCREENING 11/23/2019 8:24 AM FINDINGS: Lungs: Unremarkable. No consolidation. Pleural spaces: Unremarkable. No pleural effusion. No pneumothorax. Heart/Mediastinum: Unremarkable. No cardiomegaly. Diaphragm: Eventration of the right hemidiaphragm. Bones/joints: Degenerative changes of the shoulders. Postsurgical changes near the thoracolumbar junction. No acute fracture. IMPRESSION: No acute cardiopulmonary process.
[2021-11-21 19:49] VITALS: BP 124/76; BP 128/76; BP 144/89; PULSE 52; PULSE 56; PULSE 60
--- NOTE | 2021-11-21 19:54 | HMH.EDUTC ---
[facility] [place] Disposition Condition on Discharge: Fair Time of Disposition: 20:15 <Bogdan Reynoso - Last Filed: 11/21/21 20:11> <Abhi Romero - Last Filed: 11/21/21 21:32> Clinical Impression: Weakness Syncopal episodes Qualifiers: Syncope type: unspecified Qualified Code(s): R55 - Syncope and collapse Fatigue Qualifiers: Fatigue type: unspecified Qualified Code(s): R53.83 - Other fatigue Disposition: Home, Self-Care Instructions: Vertigo Additional Instructions: stable exam and labs at baseline - has appt in am Referrals: Shannan Cassidy PA [Primary Care Provider] - Medical Decision Making - Medical Records Medical records reviewed: No: I reviewed the patient's medical records. - [place] Inquiry Pt receiving controlled substance: No <Bogdan Reynoso - Last Filed: 11/21/21 20:11> - Lab Data Lab results reviewed: Yes: I reviewed the patient's lab results. Result diagrams: 11/21/21 20:22 11/21/21 20:22 - Radiology Data #1 Image(s): Chest Image Reviewed: Yes I have reviewed radiologist's interpretation Preliminary Findings: Normal/NAD - ECG Data Tracing #1 Normal Sinus Rhythm: Yes Ischemic changes: non-specific ST-T wave changes <Abhi Romero - Last Filed: 11/21/21 21:32> Vital Signs: 11/21/21 19:07 11/21/21 19:49 11/21/21 20:19 Temperature 97.9 F 98.3 F Temperature Source Oral Oral Pulse Rate [Left] 59 L 60 Pulse Rate [Orthostatic Lying] 52 L Pulse Rate [Orthostatic Sitting] 60 Pulse Rate [Orthostatic Standing] 56 L Respiratory Rate 14 16 Blood Pressure [Orthostatic Lying] 124/76 Blood Pressure [Orthostatic Sitting] 144/89 H Blood Pressure [Orthostatic Standing] 128/76 Blood Pressure [Right Arm] 121/79 146/95 H Blood Pressure Mean [Right Arm] 93 112 Blood Pressure Source [Right Arm] Automatic Cuff Blood Pressure Position [Right Arm] Sitting 02 Sat by Pulse Oximetry 96 97 Oxygen Delivery Method Room Air - Lab Data Lab Results 11/21/21 20:22: WBC 7.9, RBC 5.47, Hgb 16.6, Hct 48.5, MCV 88.7, MCH 30.4, MCHC 34.3, RDW 13.3, Plt Count 256, MPV 8.4, Neut % (Auto) 67.1, Lymph % (Auto) 23.0, [place] % (Auto) 6.8, Eos % (Auto) 2.1, Baso % (Auto) 1.1, Neut # (Auto) 5.3, Lymph # (Auto) 1.8, [place] # (Auto) 0.5, Eos # (Auto) 0.2, Baso # (Auto) 0.1 11/21/21 20:22: Sodium 135 L, Potassium 3.5, Chloride 99, Carbon Dioxide 29, Anion Gap 10.5, BUN 14, Creatinine 1.10, Estimated Creat Clear 91, Estimated GFR 67, Est GFR ( Amer) 81, Glucose 100, Calcium 8.9, Total Bilirubin 0.6, Direct Bilirubin 0.5 H, Conjugated Bilirubin 0.0, Indirect Bilirubin 0.1, Unconjugated Bilirubin 0.2, AST 54, ALT 61, Alkaline Phosphatase 85, Troponin I < 0.01, Total Protein 8.6 H, Albumin 5.0 Orders (Tests/Meds): ED MEDICATIONS Generic Name Dose Route Start Last Admin Trade Name Freq PRN Reason Stop Dose Admin Lactated Ringer's 1,000 mls @ 999 mls/hr 11/21/21 20:45 11/21/21 20:41 Lactated Ringer's 1000 Ml Bag IV 11/21/21 21:45 999 mls/hr .Q1H1M ERYN Administration Discontinued Medications Generic Name Dose Route Start Last Admin Trade Name Freq PRN Reason Stop Dose Admin Ondansetron HCl 4 mg 11/21/21 20:31 11/21/21 20:41 Ondansetron 4mg/2ml Vial IV 11/21/21 20:32 4 mg ONCE ONE Administration ORDERS Category Date Time Status Covid-19 Nasal PCR ([facility]) Routine Lab 11/21/21 20:22 Received Troponin I Q3H Lab 11/21/21 23:45 Ordered Troponin I Q3H Lab 11/22/21 02:45 Ordered Medical Decision Narrative: He was transferred to the ER due to his syncopal episode and there not being a clear etiology for it. (Bogdan Reynoso) at baseline at this time and has appt with pcp in am (Abhi Romero) [facility] [place] HPI - General Mode of Arrival: Ambulatory Source of Information: Patient Limitations: No Limitations Description of Symptoms (Recalled from Triage Doc. by RN): PT REPORTS THAT HE HAS BEEN HAVING PROBLEMS WITH VERTIGO, DIZZINESS, SWEATING A
--- NOTE | 2021-11-21 20:16 | ECG_ITS ---
APPROVED REPORT Exam: Resting ECG HR:60 bpm ECG Measurements Heart Rate 60 AXES OK 235 P 65 QRSd 94 QRS 63 QT 437 T 45 QTc 438 Conclusion SINUS RHYTHM WITH FIRST DEGREE AV BLOCK ABNORMAL ECG UNCONFIRMED REPORT Electronically signed by : Harman Stanford MD 11/22/2021 20:23:41
[2021-11-21 20:19] VITALS: BP 146/95; PULSE 60; RESP 16; TEMP 36.8; O2SAT 97; BMI 35.6
[2021-11-21 20:41] LABS: Chloride 99 mmol/L (98-107); Potassium 3.5 mmoL/L (3.5-5.1); Sodium 135 mmol/L (136-145)
[2021-11-21 20:43] LABS: Alanine Aminotransferase 61 U/L (12-78); Aspartate Amino Transferase 54 U/L (17-59); Bilirubin,Unconjugated 0.2 mg/dL (0.0-1.1); Blood Urea Nitrogen 14 mg/dl (9-20); Creatinine Clearance Estimated 91 mL/min (50-200); Estimated Glomerular Filt Rate 67 ml/min (>60); GFR (African American) 81 ML/MIN (>60)
[2021-11-21 20:44] LABS: Alkaline Phosphatase 85 U/L (38-126); Anion Gap 10.5 mEq/L (5-15); Bilirubin,Direct 0.5 mg/dl (0.0-0.4); Bilirubin,Indirect 0.1 mg/dL (0.0-0.9); Bilirubin,Total 0.6 mg/dl (0.2-1.3); Calcium 8.9 mg/dl (8.4-10.2); Carbon Dioxide 29 mmol/L (22.0-30.0); Glucose 100 mg/dl (74-100); Total Protein,Serum 8.6 g/dl (6.3-8.2)
[2021-11-21 20:54] LABS: Basophils # 0.1 K/mm3 (0-0.2); Basophils % 1.1 % (0.1-2.0); Eosinophils # 0.2 K/mm3 (0.0-0.4); Eosinophils % 2.1 % (0.1-12.0); Hematocrit 48.5 % (42.0-52.0); Hemoglobin 16.6 g/dL (14.1-18.0); Lymphocytes # 1.8 K/mm3 (0.7-4.5); Mean Corpuscular HGB Conc 34.3 g/dL (31.8-35.4); Mean Corpuscular Hemoglobin 30.4 pg (27.0-31.2); Mean Corpuscular Volume 88.7 fl (80-94); Mean Platelet Volume 8.4 fl (7.4-10.4); Monocytes # 0.5 K/mm3 (0.1-1.0); Monocytes % 6.8 % (1.7-9.3); Neutrophils # 5.3 K/mm3 (1.8-7.8); Neutrophils % 67.1 % (37.0-80.0); Platelet Count 256 K/mm3 (142-424); Red Blood Count 5.47 M/mm3 (4.60-6.20); Red Cell Distribution Width 13.3 % (11.5-17.5); White Blood Count 7.9 K/mm3 (4.8-10.8)
[2021-11-21 20:56] LABS: Troponin I < 0.01 ng/ml (0.00-0.034)
[2021-11-21 21:35] VITALS: BP 146/95; PULSE 60; RESP 20; TEMP 36.8; O2SAT 99
== END 2021-11-21 21:38 | disposition home or self-care (01) ==
LOC: UTC 20:15 → ER 20:17
PROVIDERS: Emergency Provider Emergency Medicine; PCP Physician Assistant
DX: R55 Syncope and collapse (principal); R53.83 Other fatigue; I48.20 Chronic atrial fibrillation, unspecified; K21.9 Gastro-esophageal reflux disease without esophagitis; I10 Essential (primary) hypertension; E78.5 Hyperlipidemia, unspecified; Z87.891 Personal history of nicotine dependence
CPT/HCPCS: 71046; 80048; 80076; 84484; 85025; 93005; 96365; 96375; 99283; 99284; C9803; J2405; U0003; U0005

== ENCOUNTER → 2021-12-05 13:52 | Outpatient (CLI) | payer MEDICARE, BC, OTHER, SELFPAY ==
[2021-12-05 14:11] LABS: Chloride 100 mmol/L (98-107); Potassium 3.7 mmoL/L (3.5-5.1); Sodium 136 mmol/L (136-145)
[2021-12-05 14:14] LABS: Anion Gap 8.7 mEq/L (5-15); Blood Urea Nitrogen 14 mg/dl (9-20); Calcium 8.5 mg/dl (8.4-10.2); Carbon Dioxide 31 mmol/L (22.0-30.0); Estimated Glomerular Filt Rate 55 ml/min (>60); GFR (African American) 67 ML/MIN (>60); Glucose 96 mg/dl (74-100)
== END ==
PROVIDERS: Visit Provider Physician Assistant
DX: Z01.812 Encounter for preprocedural laboratory examination (principal)
CPT/HCPCS: 36415; 80048

== ENCOUNTER → 2021-12-06 08:43 | Outpatient (CLI) | payer MEDICARE, BC, OTHER, SELFPAY ==
--- NOTE | 2021-12-06 08:44 | MR_ITS ---
FINAL REPORT CLINICAL HISTORY: neck pain with radicular symptoms. bilateral shoulder numbness and arm pain, numbness, and tingling. headache. no injury or trauma. symptoms x10yrs. no prior. FINDINGS: Multiplanar MR imaging of the cervical spine was performed without contrast. On the sagittal T2-weighted images, disc degeneration is seen throughout. There is straightening of the cervical spine. There is no evidence of fracture. The vertebral alignment is normal. The cervical spinal cord has an unremarkable appearance without evidence of mass, edema or syrinx. The cervicomedullary junction is normal. C2-3: Small central disc protrusion is present. There is no significant canal stenosis or neural foraminal narrowing. C3-4: Small central disc protrusion is present. There are uncovertebral osteophytes. There is severe right and moderate left neural foraminal narrowing. C4-5: Disc osteophyte complex is present. There is a small central disc protrusion with severe right and moderate left neural foraminal narrowing. C5-6: Disc osteophyte complex is present with moderate right and severe left neural foraminal narrowing. There is a broad-based left paracentral disc protrusion which indents the thecal sac with possible left C6 nerve root impingement. There is mild central canal stenosis with an AP diameter of the thecal sac of 8 mm. C6-7: An annular bulge is present. There is a central disc protrusion which causes cord contouring. There is mild bilateral neural foraminal narrowing. There is mild central canal stenosis with an AP diameter of the thecal sac of 8 mm. C7-T1: An annular bulge is present with mild bilateral neural foraminal narrowing. IMPRESSION: Broad-based left paracentral disc protrusion at C5-6 with possible left C6 nerve root impingement. Multilevel disc protrusions, neural foraminal narrowing, and mild central canal stenosis at C5-6 and C6-7. Reviewed, Interpreted and Dictated by Nas Allison III, MD Transcribed by Yancy Theodore Authenticated by Nas Allison III, MD on 12/06/2021 10:26:26 AM [facility]
--- NOTE | 2021-12-06 09:44 | CT_ITS ---
FINAL REPORT TECHNIQUE: Thin section axial CT with IV contrast supplemented with multiplanar reconstruction under CT angiogram protocol. This study was performed with techniques to keep radiation doses as low as reasonably achievable (ALARA). Individualized dose reduction techniques using automated exposure control or adjustment of mA and/or kV according to the patient''s size were employed. NASCET criteria was utilized during interpretation. CLINICAL HISTORY: Passing out with sneezing, vertigo FINDINGS: Aortic arch: Arch shows no significant narrowing. Great vessel origins are widely patent. Right carotid: No significant stenosis is seen of the cervical common or internal carotid artery. Left carotid: No significant stenosis is seen of the cervical common or internal carotid artery. Vertebral: Left vertebral artery is dominant. No significant stenosis is present. IMPRESSION: No evidence of stenosis. Reviewed, Interpreted and Dictated by Nas Allison III, MD Transcribed by Yancy Theodore Authenticated by Nas Allison III, MD on 12/06/2021 03:36:25 PM [facility]
--- NOTE | 2021-12-06 09:44 | CT_ITS ---
FINAL REPORT TECHNIQUE: Thin section axial CT with IV contrast supplemented with multiplanar reconstruction under CT angiogram protocol. 3-D reconstructions were performed. This study was performed with techniques to keep radiation doses as low as reasonably achievable (ALARA). Individualized dose reduction techniques using automated exposure control or adjustment of mA and/or kV according to the patient''s size were employed. CLINICAL HISTORY: passing out with sneezing, vertigo FINDINGS: The distal vertebral, basilar and distal internal carotid arteries have an unremarkable appearance. No aneurysm is seen. Major intracranial vessels are patent without significant stenosis. IMPRESSION: No evidence of significant stenosis. Reviewed, Interpreted and Dictated by Nas Allison III, MD Transcribed by Yancy Theodore Authenticated by Nas Allison III, MD on 12/06/2021 03:35:36 PM [facility]
--- NOTE | 2021-12-06 09:58 | CT_ITS ---
FINAL REPORT CLINICAL HISTORY: VERTIGO FINDINGS: Axial images of the head were obtained without contrast. Coronal reformatted images were also obtained.This study was performed with techniques to keep radiation doses as low as reasonably achievable (ALARA). Individualized dose reduction techniques using automated exposure control or adjustment of mA and/or kV according to the patient's size were employed. There is no evidence of intracranial hemorrhage or mass. The ventricular size is within normal limits. There is no evidence of shift of the midline structures. No abnormal extra axial fluid collection is identified. No skull abnormality is seen on the bone window images. IMPRESSION: No acute intracranial abnormality. Reviewed, Interpreted and Dictated by Nas Allison III, MD Transcribed by Yancy Theodore Authenticated by Nas Allison III, MD on 12/06/2021 10:51:[address] [facility]
== END ==
PROVIDERS: PCP Physician Assistant; Visit Provider Physician Assistant
DX: M54.12 Radiculopathy, cervical region (principal); R42 Dizziness and giddiness; R55 Syncope and collapse
CPT/HCPCS: 70450; 70496; 70498; 72141; 76376; Q9967

== ENCOUNTER → 2022-01-28 08:51 | Outpatient (CLI) | payer MEDICARE, BC, OTHER, SELFPAY ==
[2022-01-28 20:24] LABS: Basophils # 0.1 K/mm3 (0-0.2); Basophils % 1.9 % (0.1-2.0); Eosinophils # 0.1 K/mm3 (0.0-0.4); Eosinophils % 1.6 % (0.1-12.0); Hematocrit 46.2 % (42.0-52.0); Hemoglobin 15.6 g/dL (14.1-18.0); Lymphocytes # 2.1 K/mm3 (0.7-4.5); Lymphocytes % 36.1 % (10-50); Mean Corpuscular HGB Conc 33.8 g/dL (31.8-35.4); Mean Corpuscular Hemoglobin 30.2 pg (27.0-31.2); Mean Corpuscular Volume 89.4 fl (80-94); Mean Platelet Volume 9.4 fl (7.4-10.4); Monocytes # 0.4 K/mm3 (0.1-1.0); Monocytes % 6.8 % (1.7-9.3); Neutrophils # 3.1 K/mm3 (1.8-7.8); Neutrophils % 53.6 % (37.0-80.0); Platelet Count 259 K/mm3 (142-424); Red Blood Count 5.17 M/mm3 (4.60-6.20); Red Cell Distribution Width 13.3 % (11.5-17.5); White Blood Count 5.7 K/mm3 (4.8-10.8)
[2022-01-28 20:35] LABS: Hemoglobin A1C 6.2 % (4.0-6.0)
[2022-01-28 20:54] LABS: Alanine Aminotransferase 48 U/L (12-78); Albumin Level 4.6 g/dl (3.5-5.0); Albumin/Globulin Ratio 1.6 (1.1-1.8); Alkaline Phosphatase 85 U/L (38-126); Anion Gap 14.8 mEq/L (5-15); Aspartate Amino Transferase 36 U/L (17-59); Bilirubin,Total 0.7 mg/dl (0.2-1.3); Blood Urea Nitrogen 15 mg/dl (9-20); Calcium 9.6 mg/dl (8.4-10.2); Carbon Dioxide 26 mmol/L (22.0-30.0); Chloride 103 mmol/L (98-107); Chol/HDL Ratio 4.6 (1-3.5); Cholesterol 180 mg/dl (140-200); Estimated Glomerular Filt Rate 61 ml/min (>60); GFR (African American) 73 ML/MIN (>60); Globulin 2.8 g/dL (1.3-3.2); Glucose 108 mg/dl (74-100); HDL Cholesterol 39 mg/dl (40-60); Potassium 3.8 mmoL/L (3.5-5.1); Sodium 140 mmol/L (136-145); Total Protein,Serum 7.4 g/dl (6.3-8.2); Triglycerides 169 mg/dl (30-150); VLDL Cholesterol 34 mg/dL (0-40)
[2022-01-28 21:06] LABS: Direct LDL Cholesterol 101.34 mg/dL (100-129)
[2022-01-28 21:12] LABS: 25-OH Vitamin D, Total 50.1 ng/mL (30-100)
[2022-01-28 21:25] LABS: Thyroid Stimulating Hormone 1.84 uIU/mL (0.465-4.68)
== END ==
PROVIDERS: PCP Physician Assistant; Visit Provider Physician Assistant
DX: M54.41 Lumbago with sciatica, right side (principal); R73.09 Other abnormal glucose; R53.83 Other fatigue; I20.9 Angina pectoris, unspecified; E55.9 Vitamin D deficiency, unspecified; G89.29 Other chronic pain; M54.42 Lumbago with sciatica, left side
CPT/HCPCS: 80053; 80061; 82306; 83036; 84443; 85025

== ENCOUNTER → 2022-03-20 14:03 | Outpatient (CLI) | payer MEDICARE, BC, OTHER, SELFPAY ==
[2022-03-20 16:29] LABS: Prostate Specific Ag Screen 3.5 ng/ml (0.0-4.0)
== END ==
PROVIDERS: PCP Physician Assistant; Visit Provider Physician Assistant
DX: Z12.5 Encounter for screening for malignant neoplasm of prostate (principal)
CPT/HCPCS: 36415; G0103

== ENCOUNTER → 2022-03-21 11:48 | Outpatient (CLI) | payer MEDICARE, BC, OTHER, SELFPAY ==
--- NOTE | 2022-03-21 11:54 | XR_ITS ---
FINAL REPORT CLINICAL HISTORY: left knee pain FINDINGS: 4 views of the left knee were obtained. There is no acute fracture or dislocation. There are mild degenerative changes. The soft tissues are unremarkable. IMPRESSION: Mild degenerative change. Reviewed, Interpreted and Dictated by Nas Allison III, MD Transcribed by Fernando Mei Authenticated and [facility]
== END ==
PROVIDERS: PCP Physician Assistant; Visit Provider Physician Assistant
DX: M25.562 Pain in left knee (principal)
CPT/HCPCS: 73564

== ENCOUNTER → 2022-04-02 08:15 | Outpatient (CLI) | payer MEDICARE, BC, OTHER, SELFPAY ==
--- NOTE | 2022-04-02 08:16 | CT_ITS ---
FINAL REPORT CLINICAL HISTORY: lung cancer screening former smoker, quit 10 years ago smoked 1/2 ppd x 20 years chronic cough. family hx of lung cancer. COMPARISON: November 23, 2019 FINDINGS: Low-Dose Chest CT CTDI vol (mGy): 2.90 DLP (mGy-cm): 96.38 Axial images were obtained from the lung apex to the mid abdomen by computed tomography. Low-dose protocol was utilized. FINDINGS: CHEST: There is no axillary adenopathy. There is no hilar or mediastinal adenopathy. The heart is proper size. There is partially improved anterior mediastinal soft tissue which may represent thymic hyperplasia. There is no pericardial or pleural effusion. Limited images of the upper abdomen demonstrates bilateral adrenal gland enlargement favoring hyperplasia. Lung window images demonstrate a 2 mm nodule near the superior aspect of the left major fissure on image 31, stable. On the bone window images there are postoperative changes in the lower thoracic spine. IMPRESSION: Lung RADS category 1. Recommend 12 month follow-up low-dose chest CT. Reviewed, Interpreted and Dictated by Nas Allison III, MD Transcribed by Heather Abreu Authenticated and [facility] [place]
== END ==
PROVIDERS: PCP Physician Assistant; Visit Provider Physician Assistant
DX: Z87.891 Personal history of nicotine dependence (principal); Z12.2 Encounter for screening for malignant neoplasm of respiratory organs
CPT/HCPCS: 71271

== ENCOUNTER → 2022-04-17 14:24 | Outpatient (CLI) | payer MEDICARE, BC, OTHER, SELFPAY ==
[2022-04-17 13:41] LABS: Adenovirus,PCR Not Detected (NotDetected); Bordetella Pertussis Not Detected (NotDetected); Chlamydophila Pneumoniae, PCR Not Detected (NotDetected); Coronavirus 19, PCR Not Detected (NotDetected); Coronavirus 229E Not Detected (NotDetected); Coronavirus NL63 Not Detected (NotDetected); Coronavirus OC43 Not Detected (NotDetected); Coronovirus HKU1,PCR Not Detected (NotDetected); Human Metapneumovirus Not Detected (NotDetected); Influenza A, PCR Not Detected (NotDetected); Influenza AH1, 2009 Not Detected (NotDetected); Influenza AH1, PCR Not Detected (NotDetected); Influenza AH3,PCR Not Detected (NotDetected); Influenza B, PCR Not Detected (NotDetected); Mycoplasma Pneumoniae, PCR Not Detected (NotDetected); Parainfluenza 1, PCR Not Detected (NotDetected); Parainfluenza 2, PCR Not Detected (NotDetected); Parainfluenza 3, PCR Not Detected (NotDetected); Parainfluenza 4, PCR Not Detected (NotDetected); Respiratory Syncytial Virus Not Detected (NotDetected); Rhinovirus/Enterovirus Not Detected (NotDetected)
== END ==
PROVIDERS: PCP Nurse Practitioner Family; Visit Provider Nurse Practitioner Family
DX: Z20.822 Contact with and (suspected) exposure to COVID-19 (principal); R05.9 Cough, unspecified
CPT/HCPCS: 87581; 87632; 87798; C9803; U0003; U0005

== ENCOUNTER → 2022-06-04 14:55 | Outpatient (CLI) | payer MEDICARE, BC, OTHER, SELFPAY ==
[2022-06-04 15:38] LABS: Coronavirus 19, PCR Not Detected (NotDetected); Influenza A, PCR Not Detected (NotDetected); Influenza B, PCR Not Detected (NotDetected)
== END ==
PROVIDERS: PCP Physician Assistant; Visit Provider Physician Assistant
DX: Z20.822 Contact with and (suspected) exposure to COVID-19 (principal)
CPT/HCPCS: C9803; U0003; U0005

== ENCOUNTER 2023-02-28 20:28 | Emergency (ER) | payer MEDICARE, BC, OTHER, SELFPAY ==
[2023-02-28 20:29] VITALS: BP 151/90; PULSE 74; RESP 20; TEMP 36.7; O2SAT 98; BMI 33.7
[2023-02-28 21:30] VITALS: BP 125/84; PULSE 70; O2SAT 95
[2023-02-28 22:15] LABS: Basophils # 0.1 K/mm3 (0-0.2); Basophils % 0.9 % (0.1-2.0); Eosinophils # 0.3 K/mm3 (0.0-0.4); Eosinophils % 3.1 % (0.1-12.0); Hematocrit 40.6 % (42.0-52.0); Hemoglobin 13.3 g/dL (14.1-18.0); Lymphocytes # 2.5 K/mm3 (0.7-4.5); Lymphocytes % 28.3 % (10-50); Mean Corpuscular HGB Conc 32.8 g/dL (31.8-35.4); Mean Corpuscular Volume 88.5 fl (80-94); Mean Platelet Volume 7.5 fl (7.4-10.4); Monocytes # 0.6 K/mm3 (0.1-1.0); Monocytes % 7.2 % (1.7-9.3); Neutrophils # 5.3 K/mm3 (1.8-7.8); Neutrophils % 60.4 % (37.0-80.0); Platelet Count 236 K/mm3 (142-424); Red Blood Count 4.59 M/mm3 (4.60-6.20); White Blood Count 8.7 K/mm3 (4.8-10.8)
[2023-02-28 22:26] LABS: Chloride 99 mmol/L (98-107); Potassium 3.6 mmoL/L (3.5-5.1); Sodium 136 mmol/L (136-145)
[2023-02-28 22:29] LABS: Alanine Aminotransferase 27 U/L (12-78); Albumin Level 4.1 g/dl (3.5-5.0); Albumin/Globulin Ratio 1.3 (1.1-1.8); Alkaline Phosphatase 78 U/L (38-126); Anion Gap 10.6 mEq/L (5-15); Aspartate Amino Transferase 27 U/L (17-59); Bilirubin,Total 0.6 mg/dl (0.2-1.3); Blood Urea Nitrogen 12 mg/dl (9-20); Carbon Dioxide 30 mmol/L (22.0-30.0); Creatinine Clearance Estimated 78 mL/min (50-200); Estimated Glomerular Filt Rate 60 ml/min (>60); GFR (African American) 73 ML/MIN (>60); Globulin 3.2 g/dL (1.3-3.2); Total Protein,Serum 7.3 g/dl (6.3-8.2)
[2023-02-28 22:30] VITALS: BP 140/85; PULSE 69; O2SAT 95
[2023-02-28 22:30] LABS: Calcium 8.8 mg/dl (8.4-10.2); Glucose 96 mg/dl (74-100)
[2023-02-28 22:35] LABS: C-Reactive Protein 55.7 mg/L (0-4)
[2023-02-28 22:41] LABS: Erythrocyte Sedimentation Rate 20 mm/hr (0-20)
[2023-02-28 23:00] VITALS: BP 127/90; PULSE 67; O2SAT 95
--- NOTE | 2023-02-28 23:25 | HMH.EDNECK ---
Discharge Plan Disposition Patient Disposition: Home, Self-Care Prescriptions Prescriptions: New prednisone [prednisone] 20 mg tablet 20 mg PO BID Qty: 10 0RF cyclobenzaprine 10 mg tablet 10 mg PO BID PRN (Reason: muscle spasm) Qty: 14 0RF No Action tadalafil [Cialis] 20 mg tablet 20 mg PO DAILY PRN (Reason: sexual activity) Qty: 90 3RF Rx Instructions: 1/2 - 1 administer approximately 30min before sexual activity; do not use more than 1 dose per 24hrs morphine 10 mg Capsule,Extend.Release Pellets 10 mg PO Q12H Rx Instructions: pt flys to the [facility] to get script simvastatin 10 mg tablet 10 mg PO DAILY aspirin 81 mg tablet,delayed release (DR/EC) 81 mg PO DAILY triamterene-hydrochlorothiazid 37.5-25 mg capsule See Rx Instructions .ROUTE .COMPLEX Rx Instructions: TAKE 1 CAPSULE BY MOUTH ONCE DAILY FOR BLOOD PRESSURE losartan 25 mg tablet 25 mg PO DAILY gabapentin 300 mg capsule 300 mg PO HSP PRN (Reason: nerve pain) montelukast 10 mg tablet 10 mg PO DAILY ergocalciferol (vitamin D2) 1,250 mcg (50,000 unit) capsule See Rx Instructions .ROUTE .COMPLEX Rx Instructions: TAKE 1 CAPSULE BY MOUTH ONCE A WEEK FOR SUPPLEMENT fluticasone propionate 50 mcg/actuation spray,suspension See Rx Instructions .ROUTE .COMPLEX Rx Instructions: Use 1 spray(s) in each nostril once daily Referrals Follow up/Referrals: Shannan Cassidy PA [Primary Care Provider] - See instructions Clinical Impressions Clinical Impression: Cervical radicular pain Instructions Patient Instructions: DI for Cervical Radiculopathy Discharge ED Provider: Heather (ED)Abhi Neck Pain/Injury HPI General Chief Complaint: Neck Pain/Injury Stated Complaint: Stiff neck,shoulder Time Seen by Provider: 02/28/23 23:25 Source of Information: Patient and Medical Record Limitations: No Limitations Description of Symptoms (Recalled from ER Triage Doc. by RN): Pt states he started having left shoulder/neck pain with muscle tightness that has now moved into his right shoulder. Pt rates his pain 10/10. Hx of Lumber Fusion in 2017. [place] History of Present Illness HPI Narrative: neck and lt scapular pain with rad to lt shoulder w/o chest pain has hx of cervical radicular pain - no fever/rash or trauma MD complaint: neck pain Onset (ago): hour(s) Radiation: left shoulder Severity: moderate Duration: intermittent Context: other (travel-) Treatments prior to arrival: ibuprofen Related Data Home Medications Medication Instructions Recorded Confirmed aspirin 81 mg tablet,delayed 81 mg PO DAILY heart 03/01/23 03/01/23 release ergocalciferol (vitamin D2) 1,250 See Rx Instructions .Route 03/01/23 03/01/23 mcg (50,000 unit) capsule .COMPLEX Supplement fluticasone propionate 50 See Rx Instructions .Route 03/01/23 03/01/23 mcg/actuation nasal .COMPLEX Allergy symptoms spray,suspension gabapentin 300 mg capsule 300 mg PO HSP PRN nerve pain 03/01/23 03/01/23 losartan 25 mg tablet 25 mg PO DAILY Blood thinner 03/01/23 03/01/23 montelukast 10 mg tablet 10 mg PO DAILY Allergy symptoms 03/01/23 03/01/23 morphine 10 mg capsule,extended 10 mg PO Q12H chronic back pain 03/01/23 03/01/23 release pellets simvastatin 10 mg tablet 10 mg PO DAILY Cholesterol 03/01/23 03/01/23 triamterene 37.5 See Rx Instructions .Route 03/01/23 03/01/23 mg-hydrochlorothiazide 25 mg .COMPLEX blood presure capsule Previous Rx's Medication Instructions Recorded tadalafil 20 mg tablet (Cialis) 20 mg PO DAILY PRN sexual activity 06/04/22 #90 tabs cyclobenzaprine 10 mg tablet 10 mg PO BID PRN muscle spasm #14 03/01/23 tabs prednisone 20 mg tablet 20 mg PO BID #10 tabs 03/01/23 Allergies Allergy/AdvReac Type Severity Reaction Status Date / Time lisinopril Allergy Severe lip Verified
[2023-02-28 23:30] VITALS: BP 130/87; PULSE 64; O2SAT 94
[2023-02-28 23:52] LABS: Troponin I < 0.01 ng/ml (0.00-0.034)
--- NOTE | 2023-02-28 23:55 | PC.NURSE ---
Pt resting in bed with lights off. No needs voiced at this time.
--- NOTE | 2023-02-28 23:59 | PC.NURSE ---
[id number] Resp tech in room to collect ABG
[2023-03-01 00:01] VITALS: BP 134/96; PULSE 65; O2SAT 95
[2023-03-01 00:41] VITALS: BP 121/90; PULSE 68; RESP 18; TEMP 36.6; O2SAT 97
== END 2023-03-01 01:00 | disposition home or self-care (01) ==
PROVIDERS: Emergency Provider Emergency Medicine; PCP Physician Assistant
DX: M54.12 Radiculopathy, cervical region (principal); M25.512 Pain in left shoulder; I10 Essential (primary) hypertension; Z87.891 Personal history of nicotine dependence
CPT/HCPCS: 80053; 84484; 85025; 85651; 86140; 96361; 96374; 96375; 99284; 99285; J2405

== ENCOUNTER → 2023-03-10 15:45 | Outpatient (CLI) | payer MEDICARE, BC, OTHER, SELFPAY ==
[2023-03-10 18:54] LABS: Basophils # 0.1 K/mm3 (0-0.2); Basophils % 0.7 % (0.1-2.0); Eosinophils # 0.3 K/mm3 (0.0-0.4); Eosinophils % 3.7 % (0.1-12.0); Hematocrit 42.9 % (42.0-52.0); Lymphocytes # 2.2 K/mm3 (0.7-4.5); Lymphocytes % 31.3 % (10-50); Mean Corpuscular HGB Conc 32.6 g/dL (31.8-35.4); Mean Corpuscular Volume 88.8 fl (80-94); Mean Platelet Volume 7.8 fl (7.4-10.4); Monocytes # 0.7 K/mm3 (0.1-1.0); Monocytes % 9.6 % (1.7-9.3); Neutrophils # 3.8 K/mm3 (1.8-7.8); Neutrophils % 54.8 % (37.0-80.0); Platelet Count 286 K/mm3 (142-424); Red Blood Count 4.83 M/mm3 (4.60-6.20); Red Cell Distribution Width 13.1 % (11.5-17.5); White Blood Count 6.9 K/mm3 (4.8-10.8)
[2023-03-10 19:11] LABS: Alanine Aminotransferase 34 U/L (12-78); Albumin Level 4.1 g/dl (3.5-5.0); Albumin/Globulin Ratio 1.5 (1.1-1.8); Alkaline Phosphatase 83 U/L (38-126); Anion Gap 17.3 mEq/L (5-15); Aspartate Amino Transferase 26 U/L (17-59); Bilirubin,Total 0.4 mg/dl (0.2-1.3); Blood Urea Nitrogen 11 mg/dl (9-20); Calcium 8.9 mg/dl (8.4-10.2); Carbon Dioxide 26 mmol/L (22.0-30.0); Chloride 101 mmol/L (98-107); Cholesterol 148 mg/dl (140-200); Estimated Glomerular Filt Rate 67 ml/min (>60); GFR (African American) 81 ML/MIN (>60); Globulin 2.8 g/dL (1.3-3.2); Glucose 83 mg/dl (74-100); HDL Cholesterol 50 mg/dl (40-60); Potassium 4.3 mmoL/L (3.5-5.1); Sodium 140 mmol/L (136-145); Total Protein,Serum 6.9 g/dl (6.3-8.2); Triglycerides 172 mg/dl (30-150); VLDL Cholesterol 34 mg/dL (0-40)
[2023-03-10 19:23] LABS: Direct LDL Cholesterol 75.39 mg/dL (100-129)
[2023-03-10 19:29] LABS: 25-OH Vitamin D, Total 31.2 ng/mL (30-100)
[2023-03-10 19:42] LABS: Thyroid Stimulating Hormone 0.46 uIU/mL (0.465-4.68)
[2023-03-12 08:19] LABS: HSV 2 IgG, Type Spec 5.26 index (0.00-0.90)
[2023-03-12 11:13] LABS: HBsAg Screen Negative (Negative); HCV Ab Non Reactive (Non Reactive); HIV Screen 4th Generation wRfx Non Reactive (Non Reactive); Hep A Ab, IGM Negative (Negative); Hep B Core Ab, IgM Negative (Negative)
[2023-03-12 12:15] LABS: Rapid Plasma Reagin Ab Titer Non Reactive (NonRea<1:1)
== END ==
PROVIDERS: PCP Physician Assistant; Visit Provider Physician Assistant
DX: M54.42 Lumbago with sciatica, left side (principal); E55.9 Vitamin D deficiency, unspecified; R53.83 Other fatigue; M54.12 Radiculopathy, cervical region; I10 Essential (primary) hypertension; Z20.2 Contact with and (suspected) exposure to infections with a predominantly sexual mode of transmission; Z11.4 Encounter for screening for human immunodeficiency virus [HIV]
CPT/HCPCS: 80053; 80061; 80074; 82306; 84443; 85025; 86593; 86695; 86703; 86790; G0432

== ENCOUNTER 2024-04-09 10:15 | Outpatient (CLI) | payer MEDICARE, BC, OTHER, SELFPAY ==
[2024-04-10 10:49] LABS: HIV (1&2) Antibody Rapid NON REACTIVE
[2024-04-11 10:34] LABS: Rapid Plasma Reagin Ab Titer Non Reactive titer (NonRea<1:1)
== END 2024-04-09 23:59 | disposition home or self-care (01) ==
LOC: LAB.DROPOF 04-10 10:33
PROVIDERS: PCP Physician Assistant; Visit Provider Physician Assistant
DX: B34.9 Viral infection, unspecified (principal); B17.10 Acute hepatitis C without hepatic coma
CPT/HCPCS: 86593; 87522

== ENCOUNTER 2025-06-02 16:03 | Emergency (ER) | payer MEDICARE, BC, OTHER, SELFPAY ==
[2025-06-02 16:14] VITALS: BP 151/100; PULSE 94; RESP 16; TEMP 36.6; O2SAT 97; BMI 35.4
--- NOTE | 2025-06-02 16:18 | XR_ITS ---
PROCEDURE INFORMATION: Exam: XR Right Hand Exam date and time: 06/02/2025 4:22 PM Age: 69 years old Clinical indication: Injury or trauma; Other: Slammed finger in door; Fracture, traumatic injury; Open fracture, severity classification not provided and displaced; Right; Middle finger; Additional info: Distal 3rd phalanx avulsion, caught finger in door. TECHNIQUE: Imaging protocol: Radiologic exam of the right hand. Views: 1 or 2 views. COMPARISON: No relevant prior studies available. FINDINGS: Bones/joints: Fracture distal tuft 3rd digit. Multiple small fragments are noted. Soft tissues: Normal. IMPRESSION: Fracture distal tuft 3rd digit.
--- NOTE | 2025-06-02 16:19 | HMH.EDGENADL ---
Discharge Plan Disposition Patient Disposition: Xfer Other Prescriptions Prescriptions: No Action albuterol sulfate 90 mcg/actuation HFA aerosol inhaler 1 inh inhalation ONCE PRN levocetirizine 5 mg tablet 5 mg PO DAILY Patient Comments: TAKE 1 TABLET BY MOUTH ONCE DAILY cetirizine 10 mg tablet 10 mg PO DAILY PRN diltiazem HCl 180 mg tablet extended release 24 hr 180 mg PO DAILY trazodone 50 mg tablet 50 mg PO DAILY atorvastatin 10 mg tablet 10 mg PO DAILY valacyclovir [Valtrex] 500 mg tablet 500 mg PO DAILY Qty: 90 3RF ergocalciferol (vitamin D2) 1,250 mcg (50,000 unit) capsule See Rx Instructions .ROUTE .COMPLEX Qty: 14 3RF Dose Instruction: TAKE 1 CAPSULE BY MOUTH ONCE A WEEK FOR SUPPLEMENT Rx Instructions: TAKE 1 CAPSULE BY MOUTH ONCE A WEEK FOR SUPPLEMENT prednisone 20 mg tablet 20 mg PO BID Qty: 10 0RF Rx Instructions: administer with food or milk vardenafil 20 mg tablet 20 mg PO DAILY PRN (Reason: sexual activity) Qty: 30 2RF morphine 10 mg Capsule,Extend.Release Pellets 10 mg PO Q12H Rx Instructions: pt flys to the [facility] to get script simvastatin 10 mg tablet 10 mg PO DAILY aspirin 81 mg tablet,delayed release (DR/EC) 81 mg PO DAILY losartan 25 mg tablet 25 mg PO DAILY gabapentin 300 mg capsule 300 mg PO HSP PRN (Reason: nerve pain) fluticasone propionate 50 mcg/actuation spray,suspension See Rx Instructions .ROUTE .COMPLEX Rx Instructions: Use 1 spray(s) in each nostril once daily cyclobenzaprine 10 mg tablet 10 mg PO BID PRN (Reason: muscle spasm) Qty: 14 0RF Referrals Follow up/Referrals: Shannan Cassidy PA [Primary Care Provider, Medical] - See instructions Clinical Impressions Clinical Impression: Open fracture of distal phalanx of right hand, Amputation of finger tip Stand Alone Forms Stand Alone Forms: Transfer Record - ED Instructions Patient Instructions: DI for Laceration Repair Print Language Print Language: Russian Discharge ED Provider: Alexx Brandt Adult HPI General Chief complaint: Wound/Laceration Stated complaint: AO 8-28 right hand cut Time Seen by Provider: 06/02/25 16:15 Mode of Arrival: Ambulatory Source of Information: Patient Description of Symptoms (Recalled from ER Triage Doc. by RN): Patient states just prior to arrival he slammed the tip of his right 3rd finger in a door at his house. Patient with laceration to end of his finger, bleeding. Patient is on 81 mg aspirin. History of Present Illness HPI narrative: Steve Song is a 69y male with a past medical history of A-fib on aspirin (denied any other blood thinner use), hypertension, hyperlipidemia, previous back surgery who presents to the emergency department for injury to his right middle finger. Patient states that 10 minutes prior to arrival, he was attempting to shut a door that did not have a door handle and got his right middle finger tip caught in between the door and the door frame. He states that the tip of his finger then got ripped off. Patient arrives with the tip of his finger and hand. Patient denies any other injuries. Related Data Home Medications ?Medication ?Instructions ?Recorded ?Confirmed aspirin 81 mg tablet,delayed 81 mg PO DAILY heart 03/01/23 04/09/24 release fluticasone propionate 50 See Rx Instructions .Route 03/01/23 04/09/24 mcg/actuation nasal .COMPLEX Allergy symptoms spray,suspension gabapentin 300 mg capsule 300 mg PO HSP PRN nerve pain 03/01/23 04/09/24 losartan 25 mg tablet 25 mg PO DAILY Blood thinner 03/01/23 04/09/24 morphine 10 mg capsule,extended 10 mg PO Q12H chronic back pain 03/01/23 04/09/24 release pellets simvastatin 10 mg tablet 10 mg PO DAILY Cholesterol 03/01/23 04/09/24 albuterol sulfate 90 mcg/actuation 1 inh inhalation ONCE PRN 03/26/23 04/09/24 aerosol inhaler levocetirizine 5 mg tablet 5 mg PO DAILY 03/26/23 04/09/24 atorvastatin 10 mg tablet 10 mg PO DAILY 04/09/24 04/09/24 cetirizine 10 mg tablet 10 mg PO DAILY PRN 04/09/24 04/09/24 diltiazem HCl 180 mg 180 mg PO DAILY 04/09/24 04/09/24 tablet,extended release 24 hr trazodone 50 mg tablet 50 mg PO DAILY 04/09/24 04/09/24 Previous Rx's ?Medication ?Instructions ?Recorded cyclobenzaprine 10 mg tablet 10 mg PO BID PRN muscle spasm #14 03/01/23 tabs ergocalciferol (vitamin D2) 1,250 See Rx Instructions .Route 04/09/24 mcg (50,000 unit) capsule .COMPLEX #14 caps prednisone 20 mg tablet 20 mg PO BID #10 tabs 04/09/24 valacyclovir 500 mg tablet 500 mg PO DAILY #90 tabs 04/09/24 (Valtrex) vardenafil 20 mg tablet 20 mg PO DAILY PRN sexual activity 06/29/24 #30 tabs Allergies Allergy/AdvReac Type Severity Reaction Status Date / Time lisinopril Allergy Severe lip Verified 04/09/24 09:41 swelling pollen extracts Allergy Unknown Verified 06/02/25 16:19 allergy reaction PFSH [facility] Disclaimer: The information contained in this section may have been updated after the patient was seen, as this information can be updated by other users. Medical History Gastroesophageal reflux disease Dizziness Endothelial dysfunction of coronary artery Former cigarette smoker Vitamin D deficiency (~06/15/18) Bilateral sciatica Allergic rhinitis Low back pain with bilateral sciatica Fusion of lumbar spine July 2017 Obstructive Sleep Apnea-Hypopnea Syndrome Hyperlipemia Hypertension Social History Smoking Status: Former smoker tobacco type: cigarettes packs per day: 1 second hand exposure: No alcohol intake: current alcohol intake frequency: holidays/special occasions only substance use type: marijuana current occupational status: retired Travel in the last 8 weeks?: None household members: family housing: house current occupational exposures/hazards: No caffeine: Yes Have you lived/traveled outside [place] in past 30 days?: No Contact w/someone who lives/traveled outside US past 30 days?: No Exposure to someone with infectious disease in past 14 days?: No Do you have a fever (greater than 100.4 F or 38 C)?: No Have you tested positive for COVID-19?: No Exposed to someone with COVID-19 in past 14 days?: No Do you have a sore throat?: No Do you have a cough?: No Do you have any weakness?: No Do you have any diarrhea?: No Are you experiencing any unusual bleeding?: Yes Do you have any muscle aches/pain?: No Do you have any abdominal pain?: No Are you experiencing loss of taste or smell?: No Other Medical History Have you received the Flu Vaccine for this season: Yes Have you received the Pneumonia Vaccine: No ROS Obtained: Yes Systems reviewed as appropriate & no additional complaints except as documented Physical Exam General General appearance: alert and in no apparent distress Head Head exam: atraumatic Eye Eye exam: Present normal appearance ENT ENT exam: Present normal external ear exam Neck Neck exam: Present full ROM Chest Chest inspection: Present symmetric chest wall rise Respiratory Respiratory exam: Present normal lung sounds bilaterally; Absent respiratory distress Cardiovascular Cardiovascular exam: Present regular rate and normal rhythm Abdominal Exam Abdominal exam: Present soft exam: Present deferred Extremities Exam Extremities exam: Present normal inspection Expanded Upper Extremity Exam Right: Hand L/R front image:  1. amputation (Exposed bone and soft tissue present. venous oozing present) Back Exam Back exam: Present normal inspection Neurological Exam Neurological exam: Present alert and oriented X3 Psychiatric Psychiatric exam: Present normal affect Skin Skin exam: Present warm and dry Medical Decision Making Medical Records Screening: Per USPSTF and CDC recommendations, given the prevalence of disease in our region, it is our hospital?s policy to screen for HIV and viral Hepatitis for all patients aged 18 and over and those with ongoing risk factors. Kayden Inquiry Pt receiving controlled substance: No Vital Signs: 06/02/25 16:14 Temperature 98 F Temperature Source Oral Pulse Rate [Right Brachial] 94 H Respiratory Rate 16 Blood Pressure [Right Arm] 151/100 H Blood Pressure Mean [Right Arm] 117 Blood Pressure Source [Right Arm] Automatic Cuff Blood Pressure Position [Right Arm] Sitting 02 Sat by Pulse Oximetry 97 Oxygen Delivery Method Room Air Orders (Tests/Meds): ED MEDICATIONS Generic Name Dose Route Start Last Admin Trade Name Freq PRN Reason Stop Dose Admin Cefazolin Sodium 2 gm 06/02/25 16:36 Cefazolin 2gm Vial IV 06/02/25 16:37 ONCE ONE Discontinued Medications Generic Name Dose Route Start Last Admin Trade Name Freq PRN Reason Stop Dose Admin Oxycodone HCl 5 mg 06/02/25 16:19 06/02/25 16:28 Oxycodone 5mg Immediate Release Tablet PO 06/02/25 16:20 5 mg ONCE ONE Administration ORDERS Category Date Time Status Hand XR right 2 views [XR hand RT 2V] Stat Exams 06/02/25 16:18 Completed Medical Decision Narrative: Steve Song is a 69y male with a past medical history of A-fib on aspirin (denied any other blood thinner use), hypertension, hyperlipidemia, previous back surgery who presents to the emergency department for injury to his right middle finger. Patient states that 10 minutes prior to arrival, he was attempting to shut a door that did not have a door handle and got his right middle finger tip caught in between the door and the door frame. He states that the tip of his finger then got ripped off. Patient arrives with the tip of his finger and hand. Patient denies any other injuries. On arrival, patient is hypertensive blood pressure 151/100, borderline tachycardia with heart rate 94, breathing 16 times a minute, afebrile, oxygen saturation 97% on room air. Physical exam, stated above, revealed an overall well-appearing male in no distress. On physical exam, the distal end of his right middle finger is completely avulsed with exposed bone and soft tissue. Venous oozing is present. Patient does have the distal tip of his finger present with him. The finger is avulsed from just before the nail bed distally with nail intact. This was immediately placed in a plastic bag and that bag was placed on ice. Patient is no other injuries at this time. Patient will be given 2 g of IV Ancef and patient states that his tetanus shot is up-to-date. No Tdap update is required at this time. X-ray imaging of the right hand was obtained and shows a fracture of the distal tuft of the third digit and small fragments are noted. Patient's wound was wrapped in a pressure dressing. At this time, I did discuss patient's case with Dr. Jacobs at the [facility] as it is felt that he will need hand surgery for either revision amputation versus reimplantation of the distal end of his finger. Dr. Jacobs graciously accepted the patient for transfer at this time. I discussed that patient will need evaluation by hand surgeon and he was agreeable for transfer at this time. Will arrange for ground transport at this time. Patient is remained stable throughout his entire emergency visit and is appropriate for transfer at this time. Critical Care Critical Care Time Critical Care Time: Yes Attestation: On 06/02/25, the high probability of a clinically significant, sudden or life threatening deterioration of the following system(s) required my full and direct attention, intervention and personal management. The time I documented below is in addition to time spent performing reported procedures but includes the following listed in this critical care notation. Total Time Total Critical Care Time: 35
--- OUTSIDE RECORDS SUMMARY | 2025-06-02 16:19 | XMS_ITS | Clinical Summary ---
Author Organization [facility] Address [address], [address] [place] [address] Care Team Providers Care Medicare Compliance Auditor Name Role Phone Amanda Orozco MD Primary Care Provider [phone] Active Problems Problem Noted Date Diagnosed Date Vitamin D deficiency 07/31/2017 HTN (hypertension) 07/31/2017 Lumbar stenosis with neurogenic claudication Allergic rhinitis 07/31/2017 Benign positional vertigo 07/31/2017 MAURICE (obstructive sleep apnea) 07/31/2017 HLD (hyperlipidemia) 07/31/2017 Immunizations Immunization Administration Dates Next Due Pneumococcal, PCV-13, PREVNAR 13, (age 6w+), IM, 0.5mL 08/03/2017 Social History Tobacco Use Types Packs/Day Years Used Date Smoking Tobacco: Never Assessed Sex and Gender Information Value Date Recorded Sex Assigned at Not on file Legal Sex Male 9:12 PM EST Gender Identity Not on file Sexual Orientation Not on file Plan of Treatment Not on file Medical Devices Implanted Type Area Sociology Teacher Device Identifier Shelf Expiration Date Model / Serial / Lot (Historical) Square Cotuit Extended Implanted:Qty: 4 on 07/31/2017 by Provider, Generic External Data, MD Bartholomew N/A: Spine Lumbar PARAMOUNT_CR 07/31/2017 122-18 / / [id number] Description:No expiration da te (Historical) Bone Cellular Matrix Vivigen Formable Medium - [id number] Implanted:Qty: 1 on 07/31/2017 by Provider, Generic External Data, Bone/Jodie t/Tissue/ Human/Syn th N/A: Spine Lumbar LIFENET_CR 12/22/2017 BL-1600-00 2 / [id number] / (Historical) Flange Nut Lrg Implanted:Qty: 4 on 07/31/2017 by Provider, Generic External Data, Other N/A: Spine Lumbar PARAMOUNT_CR 07/31/2017 120-12 / / [id number] Description:No expiration da te (Historical) Flange Nut Sm Implanted:Qty: 4 on 07/31/2017 by Provider, Generic External Data, Other N/A: Spine Lumbar PARAMOUNT_CR 07/31/2017 120-10 / / [id number] Description:No expiration da te (Historical) Horizontal Plate Offset B 55.0 Mm Implanted:Qty: 1 on 07/31/2017 by Provider, Generic External Data, Screw/Marizol te/Nail/R od N/A: Spine Lumbar PARAMOUNT_CR 07/31/2017 112-550B / / [id number] (Historical) Horizontal Plate Offset B 55.0 Mm Implanted:Qty: 1 on 07/31/2017 by Provider, Generic External Data, Screw/Marizol te/Nail/R od N/A: Spine Lumbar PARAMOUNT_CR 07/31/2017 112-550B / / [id number] (Historical) Plate Vertical Standard 31 Mm Implanted:Qty: 2 on 07/31/2017 by Provider, Generic External Data, Screw/Marizol te/Nail/R od N/A: Spine Lumbar PARAMOUNT_CR 07/31/2017 114-310 / / [id number] Description:No expiration da te (Historical) Screw Bone 5.5 X 45mm Implanted:Qty: 4 on 07/31/2017 by Provider, Generic External Data, Screw/Marizol te/Nail/R od N/A: Spine Lumbar PARAMOUNT_CR 07/31/2017 110-5545 / / [id number] Description:No expiration da te (Historical) Wedges / Washers 0 Dg Implanted:Qty: 4 on 07/31/2017 by Provider, Generic External Data, N/A: Spine Lumbar PARAMOUNT_CR 07/31/2017 118-00 / / [id number] Description:No expiration da te Care Teams Medicare Compliance Auditor Relationship Specialty Start Date End Date Amanda Orozco MD [address] [place] [address] PCP - General 08/25/17
--- OUTSIDE RECORDS SUMMARY | 2025-06-02 16:19 | XMS_ITS | Clinical Summary ---
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 Active triamterene-hyd rochlorothiazid e (DYAZIDE) 37.5-25 MG per capsule Take 1 capsule by mouth Every Morning. Active losartan (COZAAR) 25 MG tablet Take 25 mg by mouth Daily. Active HYDROcodone-violetta taminophen (NORCO) 5-325 MG per tablet Take 1 tablet by mouth Every 6 (Six) Hours As Needed. Active aspirin 81 MG chewable tablet Chew 1 tablet Daily. Active gabapentin (NEURONTIN) 300 MG capsule Take 1 capsule by mouth 3 (Three) Times a Day. 90 capsule 1 2 Active dilTIAZem (CARDIZEM) 120 MG tablet Take 1 tablet by mouth Daily. Active fluticasone (FLONASE) 50 MCG/ACT nasal spray 2 sprays into the nostril(s) as directed by provider Daily As Needed for Rhinitis. Active Ergocalciferol (VITAMIN D2 PO) Take 1,250 mcg by mouth 1 (One) Time Per Week. Active EQ Aspirin Adult Low Dose 81 MG EC tablet Take 81 mg by mouth Daily. 2 Active Cartia XT 120 MG 24 hr capsule 2 Active albuterol sulfate HFA 108 (90 Base) MCG/ACT inhaler Inhale 2 puffs Every 4 (Four) Hours As Needed. 3 Active cyclobenzaprine (FLEXERIL) 10 MG tablet Take 1 tablet by mouth 2 (Two) Times a Day As Needed for Muscle Spasms. 3 Active levocetirizine (XYZAL) 5 MG tablet Take 1 tablet by mouth Daily. 3 Active predniSONE (DELTASONE) 20 MG tablet Take 1 tablet by mouth Every 12 (Twelve) Hours. 3 Active tadalafil (CIALIS) 20 MG tablet TAKE 1/2 ( ONE-HALF) TO 1 TABLET BY MOUTH APPROX 30MIN BEFORE SEXUAL ACTIVITY, DO NOT USE MORE THAN 1 DOSE PER 24 HRS 3 Active vitamin D (ERGOCALCIFEROL ) 1.25 MG (89215 UT) capsule capsule TAKE 1 CAPSULE BY MOUTH ONCE A WEEK FOR SUPPLEMENT 3 Active losartan-hydroc hlorothiazide (HYZAAR) 50-12.5 MG per tablet Take 1 tablet by mouth Daily. Active Gel Base gel Apply 1 or 2 grams of pain gel to affected areas three to four times a day. 240 g 3 Active Active Problems Problem Noted Date Diagnosed Date Spondylosis of lumbar region without myelopathy or radiculopathy 03/14/2022 Lumbar postlaminectomy syndrome 03/13/2022 Class 2 severe obesity due t o excess calories with serious comorbidity and body mass index (BMI) of 36.0 to 36.9 in adult 01/14/2022 Essential hypertension 01/14/2022 Lumbar stenosis with neurogenic claudication Overview (07/20/2019): Added automatically from request for surgery [id number] Chronic bilateral low back pain with bilateral s ciatica 08/10/2018 Overview (08/10/2018): Added automatically from request for surgery [id number] Family History Medical History Relation Name Comments Cancer Maternal Uncle 1 Dioni Song Lung cancer Cancer Maternal Uncle 2 Reed Comer sr. Colon C ancer Alcohol abuse Mother Tameka Song of schro sis of the liver Hyperlipidemia Sister 1 Audra Song Medication Hyperlipidemia Sister 2 Mindi Song Medication Asthma Son Steve Song Jr. Grown out of Relation Name Status Comments Maternal Uncle 1 Dioni Song Maternal Uncle 2 Reed Comre sr. Mother Tameka Song Sister 1 Audra Song Sister 2 Mindi Song Son Steve Song Jr. Social History Tobacco Use Types Packs/Day Years Used Date Smoking Tobacco: Former Cigarettes Q uit: 10/06/2008 Smokeless Tobacco: Never Alcohol Use Standard Drinks/Week Comments Yes 0 (1 standard drink = 0.6 oz pur e alcohol) Occasionally beer AUDIT-C Answer Date Recorded Q1: How often do you have a drink containing alc ohol? 2-3 times a week 01/07/2022 Q2: How many drinks containi ng alcohol do you have on a typical day when you are drinking? 1 or 2 01/07/2022 Q3: How often do you have si x or more drinks on one occasion? Never 01/07/2022 PHQ-2 Answer Date Recorded Retired PHQ-9: Brief Depression Severity Measure Score 1 03/11/2023 Abuse Screen Answer Date Recorded Unsafe at Home or Work/School Not on file Feels Threatened by Someone? Not on file 09/2023 Does Anyone Keep You from Co ntacting Others or Doint Things Outside the Home? Not on file 07/17/2023 Physical Sign of Abuse Present Not on file 1 Housing Stability Answer Date Recorded Current Living Arrangements Not on file 07/06 Potentially Unsafe Housing Conditions Not on julian e 07/17/2023 Family and Community Support Answer Zheng e Recorded Help with Day-to-Day Activities Not on file 07/17/2023 Lonely or Isolated Not on file 07/17/2023 Employment Answer Date Recorded Do you want help finding or keeping work or a kristen b? Not on file 07/17/2023 Disabilities Answer Date Recorded Concentrating, Remembering, or Making Decisions Difficulty Not on file 07/17/2023 Doing Errands Independently Difficulty Not on fi le 07/17/2023 Education Answer Date Recorded Help with school or training? Not on file Preferred Language Not on file 07/17/2023 PHQ-2 Answer Date Recorded Retired PHQ-9: Brief Depression Severity Measure Score 1 03/11/2023 Sex and Gender Information Value Date Recorded Sex Assigned at Male 05/11/2023 8:47 PM EDT Legal Sex Male 10:14 AM EDT Gender Identity Male 05/11/2023 8:47 PM EDT Sexual Orientation Straight 05/11/2023 8: 47 PM EDT Last Filed Vital Signs Vital Sign Reading Time Taken Comments Blood Pressure 123/71 04/15/2022 2:26 PM EDT Pulse 68 03/14/2022 12:22 PM EDT Temperature 36.1 C (96.9 F) 03/14/2022 12:22 PM EDT Respiratory Rate 16 04/15/2022 2:26 PM EDT Oxygen Saturation 98% 03/14/2022 12:22 PM EDT Inhaled Oxygen Concentration - - Weight 100 kg (221 lb 3.2 oz) 03/11/2023 8:01 AM EDT Height 165.1 cm (5' 5 ) 03/11/2023 8:01 AM EDT Body Mass Index 36.81 03/11/2023 8:01 AM EDT Plan of Treatment Health Maintenance Due Date Last Done Comments COLOGUARD 2000 COLON CANCER SCREENING 5 YEA R SIGMOIDOSCOPY 2000 COLONOSCOPY 2000 [address] CANCER SCREENING 2000 CT COLONOGRAPHY 2000 FECAL OCCULT BLOOD TEST 2000 FIT Testing (1 year) 2000 ZOSTER VACCINE (1 of 2) 2005 ANNUAL WELLNESS VISIT 08/07/2018 HEPATITIS C SCREENING 08/07/2018 AAA SCREEN ONCE 2020 COVID-19 Vaccine (2 - season) 06/06/202406/2021 INFLUENZA VACCINE 07/06/2025 07/06/2020, 07/06/2019 TDAP/TD VACCINES (2 - Td or Tdap) 04/24/2032 Pneumococcal Vaccine 50+ Completed 022, 11/06/2018, 08/03/2017 Insurance TransactionTree CROSS [facility] MEDIC[facility] A & B Care Teams Cylinder Die Machine Helper Relationship Specialty Start Date End Date Shannan Cassidy PA PCP - General Physician Electromagnet Crane Operator 08/06/18
--- NOTE | 2025-06-02 16:20 | PC.NURSE ---
Contacted [facility] regarding X-Rays of this patient and asked them politely if once they take them to power share to [facility]
[2025-06-02] MEDS: OXYCODONE 5MG IMMEDIATE RELEASE TABLET 5 MG PO (16:28)
--- NOTE | 2025-06-02 16:33 | PC.NURSE ---
Contacted [facility] regarding a transfer of this patient they will be calling us back
[2025-06-02] MEDS: CEFAZOLIN 2GM VIAL 2 GM IV (16:57)
[2025-06-02 17:03] VITALS: BP 161/100; PULSE 94; RESP 16; TEMP 36.6; O2SAT 97
== END 2025-06-02 17:15 | disposition other institution (70) ==
PROVIDERS: Emergency Provider Student in an Organized Health Care Education/Training Program; PCP Physician Assistant
DX: S68.119A Complete traumatic metacarpophalangeal amputation of unspecified finger, initial encounter (principal)
CPT/HCPCS: 73120; 96374; 99282; 99291; J0690

== ENCOUNTER 2025-06-03 15:39 | Outpatient (CLI) | payer MEDICARE, BC, OTHER, SELFPAY ==
--- OUTSIDE RECORDS SUMMARY | 2025-06-02 18:26 | XMS_ITS | Encounter Summary ---
Author Organization [facility] Address [address] [place] [address] Care Team Providers Care Automotive Design Drafter Name Role Phone Shannan Cassidy Primary Care Provider [phone] Reason for Referral * Consultation (Routine) - Authorized Specialty Diagnoses / Procedures Referred By Contact Referred To Contact Plastic Surgery / Hand Surgery Diagnoses Fingertip amputation, initial encounter Hua Alba MD [address] [address] Phone: tel: fax: Joselyn Mattson PA [address] [address] Phone: tel: fax: Referral ID Status Reason Start Date Expiration Date Visits Requested Visits Authorized [id number] Authorized Specialty Services Required 06/02/2025 12/02/2026 1 1 Scheduling Instructions F/u with PK on 06/10/25 Reason for Visit * Reason Comments Finger Injury Encounter Details Date Type Department Care Team (Late st Contact Info) Description 06/02/2025 6:26 PM EDT - 06/02/2025 10:41 PM EDT Emergency [facility] [address] [place] [address] Jh Richey MD [address] [place] [address] Fingertip amputation, initial encounter (Primary Dx); Amputation of tip of finger, initial encounter Discharge Disposition: Home or Self Care Social History Tobacco Use Types Packs/Day Years Used Date Smoking Tobacco: Former Alcohol Use Standard Drinks/Week Comments No 0 (1 standard drink = 0.6 oz pur e alcohol) Sex and Gender Information Value Date Recorded Sex Assigned at Not on file Legal Sex Male 7:02 PM EDT Gender Identity Not on file Sexual Orientation Not on file documented as of this encounter Last Filed Vital Signs Vital Sign Reading Time Taken Comments Blood Pressure 144/92 06/02/2025 10:28 PM EDT Pulse 83 06/02/2025 10:28 PM EDT Temperature 36.8 C (98.2 F) 06/02/2025 10:28 PM EDT Respiratory Rate 18 06/02/2025 10:28 PM EDT Oxygen Saturation 95% 06/02/2025 10:28 PM EDT Inhaled Oxygen Concentration - - Weight 98.8 kg (217 lb 13 oz) 06/02/2025 6:33 PM EDT Height - - Body Mass Index - - documented in this encounter Functional Status * Calculated C-SSRS Risk Score (Lifetime/Recent) Answer Date of Assessment Author No Risk Indicated 06/02/2025 6:34 PM EDT Ileana Campa RN * Question Answer Date of Assessment Author 1. Wish to be (Past 1 Month) No 06/02/2025 6:34 PM EDT Xochilt Henderson RN 2. Non-Specific Active Suicidal Thoughts (Past 1 Month) No 06/02/2025 6:34 PM EDT Xochilt Henderson RN 6. Suicidal Behavior (Lifetime) No 06/02/2025 6:34 PM EDT Xochilt Henderson RN documented as of this encounter Discharge Instructions * Discharge Instructions* Alexandre Pierre DO - 06/02/2025 10:16 PM EDT You were seen in the emergency room for a finger tip amputation. Please follow up with plastic surgery as scheduled for further care of wound. You have been prescribed Keflex for infection prevention. Please take twice a day for 7 days. documented in this encounter Medications at Time of Discharge cephalexin (Keflex) 500 MG capsuleIndication s:Fingertip amputation, initial encounter Take 1 capsule by mouth 2 times a day for 7 days. 14 capsule 06/02/2025 06/09/2025 oxyCODONE (Roxicodone) 5 MG immediate release tablet Take 1 tablet by mouth every 6 hours as needed (pain) for up to 3 days. 12 tablet 06/02/2025 06/05/2025 documented as of this encounter Miscellaneous Notes * ED Procedure Note - Gogo Morrow MD - 06/02/2025 8:17 PM EDT Images from the original note were not included. Procedures [facility] Department of Surgery Division of Plastic Surgery Procedural Note Procedure Name: Laceration Repair Indication: Promote wound healing, prevent infection, prevent bleeding Location: right long finger Pre-Procedure Diagnosis: Amputation of the distal right long finger Post-Procedure Diagnosis: Same The risks, benefits, indications, contraindications, and surgical alternatives were explained to the patient. Commonly associated risks of the procedure where also discussed with the patient in detail. The patient participated in the discussion and was given an opportunity to ask questions. All questions were answered to the patient's verbal satisfaction. Procedure Details Prior to beginning the procedure, local anesthesia was achieved using 8 mL of 1% lidocaine with epinephrine. Following this, the laceration(s) were thoroughly irrigated with copious amounts of normalsaline. Laceration(s) were prepped and draped in the usual sterile fashion. Physician donned sterile gloves per hospital policy. On inspection, there was partial amputation of the distal right long finger through the distal phalanx with absent dorsal tissue and nail plate. I began by using rongeursto remove remaining distal phalanx until to the level of the DIP joint. The condyles of the middle phalanx were contoured using rongeurs. The germinal matrix was ablated using an 11-blade. I then performed traction neurectomies of the radial and ulnar digital nerves. The finger tourniquet was let down and I then achieved hemostasis of active arterial bleeding by ligating bleeding vessel with 4-0 Vicryl. I then re-approximated remaining skin using 4-0 Monocryl in a simple interrupted fashion. Excess skin was trimmed in a fishmouth fashion to fingertip contouring. Estimated blood loss was minimal. Patient tolerated the procedure very well without complications. Instructions The patient does not require any suture removal. - You should try to keep your incisions as clean and dry as possible. - You may shower. Let the soapy water run over your incisions. Do not scrub at your incisions. After you shower, pat your incisions dry with a clean towel. - Do NOT soak your incisions, or take a tub bath for 2 weeks. Gogo Morrow MD Plastic and Reconstructive Surgery Cosigned by Hua Alba MD at 06/03/2025 7:21 AM EDT Associated attestation - Hua Alba MD - 06/03/2025 7:21 AM EDT Signature only. Hua Alba MD * Consults - Gogo Morrow MD - 06/02/2025 8:10 PM EDTAssociated Order(s): Inpatient consult to Plastic Surgery Images from the original note were not included. [facility] Department of Surgery Division of Plastic Surgery History & Physical Note Inpatient consult to Plastic Surgery Consult performed by: Gogo Morrow MD Consult ordered by: Hua Alba MD Reason for consult: finger injury Reason for Consult: Finger injury Requesting Service: Emergency Medicine Consult Date and Time: 06/02/2025 8:10 PM Subjective History of Present Illness: Steve Song is a right hand dominant 69 y.o. male with PMHx significant for HTN who presented to ED on 06/02/25 with right long finger fingertip injury. He states he accidentally slammed his finger in his bedroom door at approximately 1630 today. He presented to [facility] ED and then was transferred to ED for further care. He denies prior injury or surgeries to his right hand. He is a non-diabetic, non-smoker. He is currently retired. Pertinent Medical Problems: Hypertension: Yes, controlled Diabetes: No Respiratory Disorders: No Bleeding/Clotting Disorders: No Blood Thinners: Yes, Aspirin Anesthesia History: No Tobacco use: Non-smoker Occupation: retired Review of Systems: Relevant review of systems was obtained as able and is negative unless stated above in HPI. History Obtained From: Patient Past Medical History: Past Medical History[1] Allergies And Reactions: Allergies[2] Past Surgical History: Surgical History[3] Family Medical History: Family History[4] Social History: Social History Socioeconomic History Marital status: Single Spouse name: Not on file Number of children: Not on file Years of education: Not on file Highest education level: Not on file Occupational History Not on file Tobacco Use Smoking status: Former Smokeless tobacco: Not on file Substance and Sexual Activity Alcohol use: No Drug use: Not on file Sexual activity: Not on file Other Topics Concern Not on file Social History Narrative Not on file Social Drivers of Health Financial Resource Strain: Not on file Food Insecurity: Not on file Transportation Needs: Not on file Physical Activity: Not on file Stress: Not on file Social Connections: Unknown (07/17/2023) Received from [facility] Family and Community Support Help with Day-to-Day Activities: Not on file Lonely or Isolated: Not on file Intimate Partner Violence: Unknown (07/17/2023) Received from [facility] Abuse Screen Unsafe at Home or Work/School: Not on file Feels Threatened by Someone?: Not on file Does Anyone Keep You from Contacting Others or Doint Things Outside the Home?: Not on file Physical Sign of Abuse Present: Not on file Housing Stability: Unknown (07/17/2023) Received from [facility] Housing Stability Current Living Arrangements: Not on file Potentially Unsafe Housing Conditions: Not on file Immunizations: Immunization History Administered Date(s) Administered Pfizer-BioNTech COVID-19 Vaccine (Hurt Cap) 12+ years (nu-sucrose) 02/14/2022 Pfizer-BioNTech COVID-19 Vaccine (Purple Cap) 12+ 10/21/2020, 11/11/2020, 08/14/2021 I have updated and confirmed the past medical, surgical, family and social history. Home Medications: Prior to Admission medications Not on File Anti-Thrombotic Medications: Is this patient taking warfarin, new oral anti-coagulant, or anti-platelet medication? Yes If Yes, What Medication: Aspirin Current Hospital Medications: Current Medications[5] Objective Objective: Physical Exam General: NAD HEENT: Atraumatic, Normocephalic Resp: Unlabored respiratory effort Psych: Appropriate mood and behavior Neuro: Alert and oriented x3 Skin: Lacerations/wounds Dorsum: Partial amputation of the distal long finger through distal phalanx with absent nail plate and distal nailbed Volar: Partial amputation of distal long finger through distal phalanx with residual volar finger pulp and active arterial bleeding from distal end Nailbed: Partial amputation through nail bed, remaining proximal part intact Card/Vascular/Capillary Refill ( >2sec or < 2 sec. D + Doppler signal only) Right: Radial pulse 2+, Ulnar pulse 2+ Thumb <2 sec, Index <2 sec, Long <2 sec, ring <2 sec, small <2 sec Left: Radial pulse 2+, Ulnar pulse 2+ Thumb <2 sec, Index <2 sec, Long <2 sec, ring <2 sec, small <2 sec Neuro/Sensory Examination Right hand two point discrimination: Thumb 8 mm, Index 8 mm, Long 8 mm, ring 8 mm, small 8 mm Left hand two point discrimination: Thumb 8 mm, Index 8 mm, Long 8 mm, ring 8 mm, small 8 mm MSK/Motor Examination Right: Thumb: 5/5 FPL, 5/5 FPB, 5/5 EPL, 5/5 EPB Index: 5/5 FDS, 5/5 FDP, 5/5 EDC, 5/5 EIP Lon/5 FDS, 5/5 FDP, 5/5 EDC Rin/5 FDS, 5/5 FDP, 5/5 EDC Small: 5/5 FDS, 5/5 FDP, 5/5 EDC, 5/5 EDM Wrist: 5/5 FCR, 5/5 FCU, 5/5 ECRL/B, 5/5 ECU Left: Thumb: 5/5 FPL, 5/5 FPB, 5/5 EPL, 5/5 EPB Index: 5/5 FDS, 5/5 FDP, 5/5 EDC, 5/5 EIP Lon/5 FDS, 5/5 FDP, 5/5 EDC Rin/5 FDS, 5/5 FDP, 5/5 EDC Small: 5/5 FDS, 5/5 FDP, 5/5 EDC, 5/5 EDM Wrist: 5/5 FCR, 5/5 FCU, 5/5 ECRL/B, 5/5 ECU Laboratory: CBC WBC ?? Hb ?? Plt ?? Hct ?? ANC ?? INR ??, PTT ??, Anti-Xa ?? MCV ?? BMP Na ?? Cl ?? BUN ?? Glu ?? K ?? Co2 ?? Cr ?? Ca ?? iCa ?? Mg ??, Phos ?? Lactate ?? LFT AST ?? AlkPhos ?? T Prot ?? ALK ?? Bili ?? Alb ?? D.Bili ?? Imaging: Amputation of the distal right long finger through the distal phalanx with fracture of the residualdistal phalanx shaft Radiographic Interpretation: I have reviewed the imaging above and agree with the radiologist interpretation. Assessment/Plan Assessment & Plan: Steve Song is a right hand dominant 69 y.o. male with PMHx significant for HTN who presented to [facility] with right long finger partial amputation after shutting it in a bedroom door. Imagingdemonstrated amputation of the right long finger through the distal phalanx with fracture of the distal end of the residual distal phalanx. Plan: - Revision amputation performed at bedside. See separate procedure note - Alumafoam splint to remain in place - Keep arm elevated - Full course of Keflexper ED - Ibuprofen and Tylenol as needed for pain control - Additional pain management per ED - Discussed return precautions - Follow up with Joselyn Mattson in hand clinic on 06/10/25 Dispo: Per the Emergency Department CODE STATUS: full code This Consult, Assessment, and Plan has been discussed with Dr. Alba, Attending Physician Gogo Morrow MD Plastic and Reconstructive Surgery [1] Past Medical History: Diagnosis Date Personal history of other diseases of the circulatory system History of hypertension Personal history of other diseases of the nervous system and sense organs History of obstructive sleep apnea Personal history of other endocrine, nutritional and metabolic disease History of hyperlipidemia [2] Allergies Allergen Reactions Lisinopril Swelling Pollen Extract Other - please document in the comment field [3] Past Surgical History: Procedure Laterality Date BACK SURGERY N/A Back Surgery from [facility] [4] No family history on file. [5] No current facility-administered medications for this encounter. No current outpatient medications on file. Cosigned by Hua Alba MD at 06/03/2025 7:21 AM EDT Associated attestation - Hua Alba MD - 06/03/2025 7:21 AM EDT I discussed the case with the resident/fellow and agree with the findings and plan as documented. * ED Triage Notes - Alix Mcgraw RN - 06/02/2025 6:26 PM EDT Patient shut his right middle finger in a door and amputated the TIP digit just proximal to the base of nail. tip of finger on ice. documented in this encounter Plan of Treatment Upcoming Encounters Date Type Department Care Team (Late st Contact Info) Description 06/13/2025 12:50 PM EDT [facility] [address] [place] [address] Joselyn Mattson PA [address] [address] Scheduled Referrals Name Type Priority Associated Diagnoses Order Schedule Discharge Ambulatory referral to Hand Surgery Outpatient Referral Routine Fingertip amputation, initial encounter Expected: 06/10/2025, Expires: 12/04/2026 documented as of this encounter Procedures Procedure Name Priority Date/Time Associated Diagnosis Comments XR HAND RIGHT 3+ VIEWS STAT 06/02/2025 8:04 PM EDT documented in this encounter Results * XR Hand Right 3+ Views (06/02/2025 8:04 PM EDT) Anatomical Region Laterality Modality Upper Extremities, Hand Right Digital Radiography Impressions 06/02/2025 9:17 PM EDT Partial amputation of the long finger distal phalanx with comminuted fracture of the distal phalanx. CRITICAL RESULT: No. COMMUNICATION: Per this written report. Preliminary report signed by Abhi Tamez MD on 06/02/2025 8:36 PM By electronically signing this report, I, the attending physician, attest that I have personally reviewed the images/data for the above examination(s) and agree with the final edited report. Drafted by Abhi Tamez MD on 06/02/2025 8:32 PM Final report signed by Joanie Black MD on 06/02/2025 9:17 PM Narrative 06/02/2025 9:17 PM EDT CLINICAL INDICATION: finger injury TECHNIQUE: XR HAND RIGHT 3+ VIEWS COMPARISON: None. FINDINGS: Partial amputation of the long finger distal phalanx with small displaced osseous fragment. Soft tissue swelling along the long finger distal phalanx. Procedure Note Joanie Black MD - 06/02/2025 CLINICAL INDICATION: finger injury TECHNIQUE: XR HAND RIGHT 3+ VIEWS COMPARISON: None. FINDINGS: Partial amputation of the long finger distal phalanx with small displacedosseous fragment. Soft tissue swelling along the long finger distalphalanx. IMPRESSION: Partial amputation of the long finger distal phalanx with comminutedfracture of the distal phalanx. CRITICAL RESULT: No. COMMUNICATION: Per this written report. Preliminary report signed by Abhi Tamez MD on 06/02/2025 8:36 PM By electronically signing this report, I, the attending physician, attestthat I have personally reviewed the images/data for the aboveexamination(s) and agree with the final edited report. Drafted by Abhi Tamez MD on 06/02/2025 8:32 PM Final report signed by Joanie Black MD on 06/02/2025 9:17 PM us Hua Alba MD IMG XR PROCEDURES Final Result documented in this encounter Visit Diagnoses Diagnosis Fingertip amputation, initial encounter- Primary Amputation of tip of finger, initial encounter documented in this encounter Administered Medications Inactive Administered Medications - up to 3 most recent administrations Medication Order MAR Action Action Date Dose Rate Site HYDROmorphone (Dilaudid) injection 1 mg 1 mg, Intravenous, Once, 1 dose, On Joanna 06/02/25 at 1920, STAT Given 06/02/2025 7:20 PM EDT 1 mg documented in this encounter Active and Recently Administered Medications Times are shown in EDT. Scheduled Medication Order 05/31/2025 06/01/2025 06/02/2025 HYDROmorphone (Dilaudid) injection 1 mg (COMPLETED) 1 mg, Intravenous, Once, 1 dose, On Joanna 06/02/25 at 1920, STAT 192 (Given - Provid er: Ileana Henderson RN)1924 (Due) lidocaine-EPINEPHrine (Xylocaine W/EPI) 1 %-1:[id number] injection 20 mL 20 mL, Infiltration, Once, 1 dose, On Joanna 06/02/25 at 2020, Routine, Sign 2101 (Canceled Entry - Provider: Ileana Henderson RN) documented in this encounter Care Teams Automotive Design Drafter Relationship Specialty Start Date End Date Shannan Cassidy PA [address] [place] [address] PCP - General 02/16/21 documented as of this encounter
--- OUTSIDE RECORDS SUMMARY | 2025-06-03 15:41 | XMS_ITS | Encounter Summary ---
Author Organization [facility] Address [address] [place] [address] Care Team Providers Care Abstract Checker Name Role Phone KhanhShannan THAD Primary Care Provider [phone] Encounter Details Date Type Department Care Team (Latest Contact Info) Description 06/02/2025 Travel Social History Tobacco Use Types Packs/Day Years Used Date Smoking Tobacco: Former Alcohol Use Standard Drinks/Week Comments No 0 (1 standard drink = 0.6 oz pur e alcohol) Sex and Gender Information Value Date Recorded Sex Assigned at Not on file Legal Sex Male 7:02 PM EDT Gender Identity Not on file Sexual Orientation Not on file documented as of this encounter Functional Status * Calculated C-SSRS Risk Score (Lifetime/Recent) Answer Date of Assessment Author No Risk Indicated 06/02/2025 6:34 PM EDT Ileana Campa RN * Question Answer Date of Assessment Author 1. Wish to be (Past 1 Month) No 06/02/2025 6:34 PM EDT Xochilt Henderson, RN 2. Non-Specific Active Suicidal Thoughts (Past 1 Month) No 06/02/2025 6:34 PM EDT Xochilt Henderson RN 6. Suicidal Behavior (Lifetime) No 06/02/2025 6:34 PM EDT Xochilt Henderson RN documented as of this encounter Plan of Treatment Upcoming Encounters Date Type Department Care Team (Late st Contact Info) Description 06/13/2025 12:50 PM EDT Office Visit [facility] [address] [place] [address] Joselyn Mattson, THAD [address] [address] documented as of this encounter Visit Diagnoses Not on filedocumented in this encounter Care Teams Abstract Checker Relationship Specialty Start Date End Date Shannan Cassidy PA [address] [place], [place] [address] PCP - General 02/16/21 documented as of this encounter
--- OUTSIDE RECORDS SUMMARY | 2025-06-03 15:41 | XMS_ITS | Clinical Summary ---
Author Organization [facility] Address [address] [place] [address] Care Team Providers Care Magnetic Prospecting Operator Name Role Phone Shannan Cassidy Primary Care Provider [phone] Allergies Active Allergy Reactions Criticality Noted Date [...] Active vitamin D (ERGOCALCIFEROL ) 1.25 MG (18578 UT) capsule capsule TAKE 1 CAPSULE BY [...] (07/20/2019): Added automatically from request for surgery [id number] Chronic bilateral low back pain with bilateral s ciatica 08/10/2018 Overview (08/10/2018): Added automatically from request for surgery [id number] Family History Medical History Relation Name Comments [...] 1 Dioni Song Maternal Uncle 2 Reed Comer sr. Mother Tameka Song Sister 1 Audra [...] Vaccine 50+ Completed 022, 11/06/2018, 08/03/2017 Insurance [employer] [facility] MEDICARE A & B Care Teams Magnetic Prospecting Operator Relationship Specialty Start Date End Date Shannan Cassidy PA PCP - General Physician [place] 08/06/18
--- OUTSIDE RECORDS SUMMARY | 2025-06-03 15:41 | XMS_ITS | Clinical Summary ---
Author Organization [facility] Address [address], [address] [place] [address] Care Team Providers Care Assistant Finance Director Name Role Phone Amanda Orozco MD Primary Care Provider [phone] Active Problems Problem Noted Date Diagnosed Date [...] on file Medical Devices Implanted Type Area Supervisor Order Takers Device Identifier Shelf Expiration Date Model / Serial / Lot (Historical) Square Repton Extended Implanted:Qty: 4 on 07/31/2017 by Provider, Generic External Data, MD Bartholomew N/A: Spine Lumbar PARAMOUNT_CR 07/31/2017 122-18 / / [id number] Description:No expiration da te (Historical) Bone Cellular Matrix Vivigen Formable Medium - [id number] Implanted:Qty: 1 on 07/31/2017 by Provider, Generic External Data, Bone/Jodie t/Tissue/ Human/Syn th N/A: Spine Lumbar LIFENET_CR 12/22/2017 BL-1600-00 2 / [id number] / (Historical) Flange Nut Lrg Implanted:Qty: [...] [id number] Description:No expiration da te Care Teams Assistant Finance Director Relationship Specialty Start Date End Date Amanda Orozco MD [address] [place] [address] PCP - General 08/25/17
--- OUTSIDE RECORDS SUMMARY | 2025-06-03 15:41 | XMS_ITS | Clinical Summary ---
Author Organization Healthcare Address [address] [place] [address] Care Team Providers Care Rfid Technician Name Role Phone KhanhShannan THAD Primary Care Provider [phone] Allergies Active Allergy Reactions Criticality Noted Date Comments Lisinopril Swelling High 06/02/2025 Pollen Extract Other - please docum ent in the comment field Low 06/02/2025 Medications cephalexin (Keflex) 500 MG capsuleIndicati ons:Fingertip amputation, initial encounter Take 1 capsule by mouth 2 times a day for 7 days. 14 capsule 06/02/2025 5 Active oxyCODONE (Roxicodone) 5 MG immediate release tablet Take 1 tablet by mouth every 6 hours as needed (pain) for up to 3 days. 12 tablet 06/02/2025 5 Active Encounters Date Type Department Care Team Description 06/02/2025 6:26 PM EDT - 06/02/2025 10:41 PM EDT Emergency [facility] [address] [place] [address] Jh Richey MD Fingertip amputation, initial encounter (Primary Dx); Amputation of tip of finger, initial encounter Discharge Disposition: Home or Self Care 06/02/2025 Travel from Last 3 Months Social History Tobacco Use Types Packs/Day Years Used Date Smoking Tobacco: Former Alcohol Use Standard Drinks/Week Comments No 0 (1 standard drink = 0.6 oz pur e alcohol) Sex and Gender Information Value Date Recorded Sex Assigned at Not on file Legal Sex Male 7:02 PM EDT Gender Identity Not on file Sexual Orientation Not on file Last Filed Vital Signs Vital Sign Reading [...] - - Body Mass Index - - Plan of Treatment Upcoming Encounters Date Type Department Care Team (Late st Contact Info) Description 06/13/2025 12:50 PM EDT Office Visit Will [facility] [address] [place] [address] Joselyn Mattson PA [address] [address] Health Maintenance Due Date Last Done Comments [facility]-Depression Screening 1955 [facility]-Hepatitis C Screening 1955 [facility]-Medicare Annual Wellness (AWV) 1955 [facility]-/Child/Adol SDOH Screenings 1955 [facility]- SDOH Screenings 1973 [facility]-Adult SDOH Screenings 1973 [facility]-IPV Vaccines (2 of 3 - Adult catch-up series) 07/18/1975 06/20/1975 CT Colonography 2000 Colonoscopy 2000 FIT-DNA 2000 FIT 2000 FOBT 2000 Sigmoidoscopy 2000 [facility]-Colorectal Cancer Screening 2000 [id number] Vaccine ( season) 2024 02/14/2022, 08/14/2021, 11/11/2020, Additional history exists [facility]-Influenza Vaccine (#1) 06/06/202506/20, 08/07/2020, 07/06/2020, Additional history exists [facility]-RSV Vaccine: 60+ Years or (1 - 1-dose 75+ series) 2030 [facility]-DTaP,Tdap,and Td Vaccines (4 - Td or Tdap) 04/24/2032 04/24/2022, 02/04/2016, 10/10/2015, Additional history exists [facility]-Zoster Vaccines Completed 11/28/2020, 08/07/2020, 10/10/2015 [facility]-Pneumococcal Vaccine: 50+ Years Completed 04/24/2022, 06/29/2021, 11/06/2018, Additional history exists [facility]-Hepatitis A Vaccines Aged Out 05/02/2025 No longer eligible based on patient's age to complete this topic HPV Vaccines Aged Out No longer eligi ble based on patient's age to complete this topic UK[facility]-HIB Vaccines Aged Out No longer e ligible based on patient's age to complete this topic [facility]-Rotavirus Vaccines Aged Out No lo nger eligible based on patient's age to complete this topic Procedures Procedure Name Priority Date/Time Associated Diagnosis Comments XR HAND RIGHT 3+ VIEWS STAT 06/02/2025 8:04 PM EDT from Last 3 Months Results * XR Hand Right 3+ Views [...] Joanie Black MD on 06/02/2025 9:17 PM Hua Alba MD IMG XR PROCEDURES Final Result from Last 3 Months Insurance MEDICARE [facility] Care Teams Rfid Technician Relationship Specialty Start Date End Date Shannan Cassidy PA [address] [place] [address] PCP - General 02/16/21
--- NOTE | 2025-06-03 15:42 | MR_ITS ---
PROCEDURE INFORMATION: Exam: MR Lumbar Spine Without Contrast Exam date and time: 06/03/2025 3:57 PM Age: 69 years old Clinical indication: Low back pain; Prior surgery; Surgery date: 6+ months; Surgery type: In 2017; Additional info: Chronic lbp titanium screws in back 2017 TECHNIQUE: Imaging protocol: Magnetic resonance imaging of the lumbar spine without contrast. COMPARISON: MR LUMBAR SPINE WO CON 10/16/2020 2:54 PM FINDINGS: alignment is grossly normal. signal intensity within the bone marrow is normal. conus terminates at the mid aspect of L1. Soft tissues are unremarkable. Disc degeneration including decreased disc height, hydration and annular disk bulge/protrusion L3-L4 and L4-L5. Central canal narrowing at these intervals. surgical plate and pedicle screws T12 and L1. Severe neural foraminal narrowing L4-L5 and L5-S1 right greater than left. Severe neural foraminal narrowing L3-L4 on the left. No marrow edema of concern. Bones/joints: . No fracture. Pedicle screws T12 and L1. Spinal cord: Severe central canal narrowing L3-L4 and L4-L5 T12-L1: Central canal appears normal. Metallic artifact limits characterization of the neural foramina. L1-L2: Central canal and neural foramina are normal. Moderate facet arthropathy L2-L3: Central canal and neural foramina are normal. L3-L4: Severe narrowing of the central canal secondary to facet hypertrophic changes, ligamentum flavum hypertrophic changes, and a broad-based annular bulge. Disc lateralizes to the left greater than right. Severe neural foraminal narrowing on the left greater than right. Paucity of fat about the exiting nerve roots bilaterally. L4-L5: Severe narrowing of the central canal secondary to facet hypertrophic changes, ligamentum flavum hypertrophic changes, and a broad-based annular bulge. Disc lateralizes to the left greater than right with paucity of fat about the exiting nerve roots laterally. Neural foraminal narrowing right greater than left L5-S1: Broad-based annular disc bulge effaces the anterior aspect of the thecal sac mildly so. Disc and severe facet arthropathy narrow the neural foramina bilaterally. Disc lateralizes to the left greater than right. Soft tissues: Cystic lesion although not entirely cystic within the right kidney of approximately 3.2 cm. Recommend follow-up ultrasound. Renal mass within the differential diagnosis. Rule out renal cell carcinoma.. IMPRESSION: Multilevel degenerative disc disease including severe central canal narrowing L3-L4 and L4-L5. See above. Cystic lesion although not entirely cystic within the right kidney of approximately 3.2 cm. Recommend follow-up ultrasound. Renal mass within the differential diagnosis. Rule out renal cell carcinoma
== END 2025-06-03 23:59 | disposition home or self-care (01) ==
LOC: RAD 15:40
PROVIDERS: PCP Physician Assistant; Visit Provider Physician Assistant
DX: M51.369 Other intervertebral disc degeneration, lumbar region without mention of lumbar back pain or lower extremity pain (principal); M48.061 Spinal stenosis, lumbar region without neurogenic claudication; R93.421 Abnormal radiologic findings on diagnostic imaging of right kidney; Z98.890 Other specified postprocedural states
CPT/HCPCS: 72148

== ENCOUNTER 2025-06-13 10:50 | Outpatient (CLI) | payer MEDICARE, BC, OTHER, SELFPAY ==
--- OUTSIDE RECORDS SUMMARY | 2025-06-02 18:26 | XMS_ITS | Encounter Summary ---
Author Organization [facility] Address [address] [place] [address] Care Team Providers Care Special Certificate Dictator Name Role Phone Shannan Cassidy Primary Care Provider [phone] Reason for Referral * Consultation (Routine) - Authorized Specialty Diagnoses / Procedures Referred By Contact Referred To Contact Plastic Surgery / Hand Surgery Diagnoses Fingertip amputation, initial encounter Hua Alba MD [address] [address] Phone: tel: fax: Joselyn Mattson PA [address] [address] Phone: tel: fax: Referral ID Status Reason Start Date Expiration Date Visits Requested Visits Authorized [id number] Authorized Specialty Services Required 06/02/2025 12/02/2026 1 1 Scheduling Instructions F/u with PK on 06/10/25 Reason for Visit * Reason Comments Finger Injury Encounter Details Date Type Department Care Team (Late st Contact Info) Description 06/02/2025 6:26 PM EDT - 06/02/2025 10:41 PM EDT Emergency [facility] Emergency Department [address] [place] [address] Jh Richey MD [address] [place] [address] Fingertip amputation, initial encounter (Primary Dx); Amputation [...] 1 Month) No 06/02/2025 6:34 PM EDT Xcohilt Henderson RN 6. Suicidal Behavior (Lifetime) No [...] Miscellaneous Notes * ED Procedure Note - Lu Leavitt MD - 06/02/2025 8:17 PM EDT Images from the original note were not included. Procedures [facility] Department of Surgery Division of Plastic Surgery [...] take a tub bath for 2 weeks. Lu Leavitt MD Plastic and Reconstructive Surgery Cosigned by Hua Alba MD at 06/03/2025 7:21 AM EDT Associated attestation - Hua Alba MD - 06/03/2025 7:21 AM EDT Signature only. Hua Alba MD * Consults - Lu Leavitt MD - 06/02/2025 8:10 PM EDTAssociated Order(s): Inpatient consult to Plastic Surgery Images from the original note were not included. [facility] Department of Surgery Division of Plastic Surgery History & Physical Note Inpatient consult to Plastic Surgery Consult performed by: Lu Leavitt MD Consult ordered by: Hua Alba MD [...] at approximately 1630 today. He presented to [facility] ED and then was transferred to ED [...] file Social Connections: Unknown (07/17/2023) Received from [facility] Family and Community Support Help with Day-to-Day Activities: Not on file Lonely or Isolated: Not on file Intimate Partner Violence: Unknown (07/17/2023) Received from [facility] Abuse Screen Unsafe at Home or Work/School: Not on file Feels Threatened by Someone?: Not on file Does Anyone Keep You from Contacting Others or Doint Things Outside the Home?: Not on file Physical Sign of Abuse Present: Not on file Housing Stability: Unknown (07/17/2023) Received from [facility] Housing Stability Current Living Arrangements: Not [...] PMHx significant for HTN who presented to [facility] with right long finger partial [...] been discussed with Dr. Alba, Attending Physician Lu Leavitt MD Plastic and Reconstructive Surgery [1] Past [...] Date BACK SURGERY N/A Back Surgery from [facility] [4] No family history on file. [5] No current facility-administered medications for this encounter. No current outpatient medications on file. Cosigned by Hua Alba MD at 06/03/2025 7:21 AM EDT Associated attestation - Hua Alba MD - 06/03/2025 7:21 AM EDT I discussed the case with the resident/fellow and agree with the findings and plan as documented. * ED Provider Notes - Alexandre Pierre DO - 06/02/2025 6:26 PM EDT Images from the original note were not included. - HPI Chief Complaint Patient presents with Finger Injury This is a 69 year old male presenting with a right 3rd finger injury. Pt slammed his finger in the door by accident, causing the tip of the finger to be cut off. Pt brought the tip of finger with himat bedside in ice. He was given Ancef and tetanus booster at OSH. History provided by: Patient Patient History Past Medical History[1] Surgical History[2] Family History[3] Social History[4] Allergies: Allergies[5] Physical Exam ED Triage Vitals [06/02/25 1833] Temp Heart Rate Resp BP 36.6 ??C (97.8 ??F) 63 18 (!) 156/102 SpO2 Temp Source Heart Rate Source Patient Position 95 % Oral -- -- BP Location FiO2 (%) -- -- Physical Exam Constitutional: Appearance: Normal appearance. HENT: Head: Atraumatic. Cardiovascular: Pulses: Normal pulses. Pulmonary: Effort: Pulmonary effort is normal. Musculoskeletal: Comments: Avulsion injury of the right 3rd finger, tip of the DIP. Skin: General: Skin is warm and dry. Capillary Refill: Capillary refill takes less than 2 seconds. Neurological: General: No focal deficit present. Mental Status: He is alert and oriented to person, place, and time. Psychiatric: Mood and Affect: Mood normal. Behavior: Behavior normal. [place] Coma Scale Score: 15 ED Course & MDM - Assessment: 69 y.o. male presents to ED with complaint of right finger injury. Differential Diagnosis: right 3rd finger soft tissue injury, partial amputation, fracture, nerve injury. In order to fully explore the differential diagnosis the following treatments and tests were ordered: ED Medication Administration from 06/02/2025 1638 to 06/03/2025 0730 Date/Time Order Dose Route Action 06/02/2025 1920 EDT HYDROmorphone (Dilaudid) injection 1 mg 1 mg Intravenous Given 06/02/20252054 EDT ceFAZolin (Ancef) injection 2 g -- Intravenous Canceled Entry 06/02/20252101 EDT lidocaine-EPINEPHrine (Xylocaine W/EPI) 1 %-1:734942 injection 20 mL -- Infiltration Canceled Entry All Other Orders Ordered Status Ordering Provider 06/02/25 194 Inpatient consult to Plastic Surgery Once Specialty: Plastic Surgery Provider: (Not yet assigned) Completed LU LEAVITT 06/02/25 1931 XR Hand Right 3+ Views Once Final result LU LEAVITT 06/02/252021 Discharge Ambulatory referral to Hand Surgery Ordered LU LEAVITT ED Course as of 06/03/25 0730 FriJun 03, 2025 0726 XR Hand Right 3+ Views I reviewed this XR hand which demonstrated a partial amputation of the tip of the 3rd finger distalphalanx. [YK] 0728 I spoke with the plastic surgery team who determined that patient would benefit from closure of the wound and antibiotic prophylaxis. We agreed that the amputated portion is not re attachable. [YK] 0729 Patient tolerated wound closure with plastic surgery. He was safe to dc home with abx prophylaxis. [YK] ED Course User Index [YK] Alexandre Pierre DO Clinical Impressions as of 06/03/25 0730 Amputation of tip of finger, initial encounter Social Determinates of Health Risks (including Economic Stability, Education and level of understanding, Healthcare access and quality and concerning social factors): None identified on this visit Ultimately, this patient was Was discharged Home (Discharge) The primary encounter diagnosis was Fingertip amputation, initial encounter. A diagnosis of Amputation of tip of finger, initial encounter was also pertinent to this visit. . Patient was counseled on the diagnoses. Discharge medications if any are listed below. Listed medications are thought be either curative for listed diagnoses or will help control ongoing symptoms. Patient is requested to follow up with Plastics in order to obtain specialty care. Instructions on follow up as well as precautions to return to the ER provided verbally by the EM provider, as well as written in patients discharge education packet. ED Prescriptions Medication Sig Dispense Start Date End Date Auth. Provider cephalexin (Keflex) 500 MG capsule Take 1 capsule by mouth 2 times a day for 7 days. 14 capsule 06/02/2025 06/09/2025 Jh Richey MD oxyCODONE (Roxicodone) 5 MG immediate release tablet Take 1 tablet by mouth every 6 hours as needed(pain) for up to 3 days. 12 tablet 06/02/2025 06/05/2025 Glenn Lerner DO Discharge Instructions You were seen in the emergency room for a finger tip amputation. Please follow up with plastic surgery as scheduled for further care of wound. You have been prescribed Keflex for infection prevention. Please take twice a day for 7 days. Disposition Discharge Pt discharged from ED. Pt vitally stable and in no obvious acute distress at the time of discharge. AVS (Cypriot Snapshot) - Printed 06/02/2025 Follow-Ups: Follow up with Joselyn Mattson PA (Plastic Surgery) Discharge Orders Discharge Ambulatory referral to Hand Surgery Authorized - [1] Past Medical History: Diagnosis Date Personal history of other diseases of the circulatory system History of hypertension Personal history of other diseases of the nervous system and sense organs History of obstructive sleep apnea Personal history of other endocrine, nutritional and metabolic disease History of hyperlipidemia [2] Past Surgical History: Procedure Laterality Date BACK SURGERY N/A Back Surgery from [facility] [3] No family history on file. [4] Tobacco Use Smoking status: Former Substance Use Topics Alcohol use: No [5] Allergies Allergen Reactions Lisinopril Swelling Pollen Extract Other - please document in the comment field Alexandre Pierre DO Resident 06/03/25 3756 Cosigned by Jh Richey MD at 06/06/2025 7:24 AM EDT Associated attestation - Jh Richey MD - 06/06/2025 7:24 AM EDT I saw and evaluated the patient with the resident/fellow. I discussed the case with the resident/fellow and agree with the findings and plan as documented. * ED Triage Notes - Alix Mcgraw, CATHY - 06/02/2025 6:26 PM EDT Patient shut his right middle finger in a door and amputated the TIP digit just proximal to the base of nail. tip of finger on ice. documented in this encounter Plan of Treatment Upcoming Encounters Date Type Department Care Team (Late st Contact Info) Description 06/13/2025 12:50 PM EDT Office Visit [facility] [address] [place] [address] Joselyn Mattson, PA [address] [address] Scheduled Referrals Name Type Priority Associated Diagnoses [...] written report. Preliminary report signed by Abhi aTmez MD on 06/02/2025 8:36 PM By electronically [...] Amputation of tip of finger, initial encounter Right hand pain- Primary Pain in soft tissues of limb documented in this encounter Administered Medications Inactive [...] Henderson RN)1924 (Due) lidocaine-EPINEPHrine (Xylocaine W/EPI) 1 %-1:235829 injection 20 mL 20 mL, Infiltration, Once, 1 dose, On Joanna 06/02/25 at 2019, Routine, Sign 2101 (Canceled Entry - Provider: Ileana Henderson RN) documented in this encounter Care Teams Special Certificate Dictator Relationship Specialty Start Date End Date Shannan Cassidy PA [address] [place] [address] PCP - General 02/16/21 documented as of this encounter
--- NOTE | 2025-06-13 | US_ITS ---
FINAL REPORT TECHNIQUE: Sonographic images of the kidneys and retroperitoneum were obtained in the longitudinal and transverse planes. CLINICAL HISTORY: CYST COMPARISON: MRI of the lumbar spine 06/03/2025 FINDINGS: The right kidney measures 11.1 cm in nlkb-rk-[id number] length. There is a 3.7 cm lesion in the mid right kidney, that does not represent a cyst. There is slightly increased echogenicity within the mass, without internal blood flow. Cortical echogenicity and thickness are Otherwise normal. The left kidney measures 10.5 cm in hgio-me-kjhq length. No hydronephrosis, mass, or stone. Cortical echogenicity and thickness are normal. Incidental note is made of fatty infiltration of the liver. IMPRESSION: 3.7 cm lesion in the mid right kidney, that does not appear to be compatible with a cyst. Recommend CT renal mass protocol or MRI renal mass protocol for further evaluation. Reviewed, Interpreted and Dictated by Cathi Valentine MD Transcribed by Jodi Pinedo Authenticated and [facility]
--- OUTSIDE RECORDS SUMMARY | 2025-06-13 10:57 | XMS_ITS | Clinical Summary ---
[facility] [address] [place] [address] Care Team Providers Care Manager Operating Name Role Phone Shannan Cassidy Primary Care Provider [phone] Allergies Active Allergy Reactions Criticality Noted Date [...] Active vitamin D (ERGOCALCIFEROL ) 1.25 MG (35549 UT) capsule capsule TAKE 1 CAPSULE BY [...] (07/20/2019): Added automatically from request for surgery [id number] Chronic bilateral low back pain with bilateral s ciatica 08/10/2018 Overview (08/10/2018): Added automatically from request for surgery [id number] Family History Medical History Relation Name Comments [...] ONCE 2020 COVID-19 Vaccine (2 - season) 06/06/202506/2021 INFLUENZA VACCINE 07/06/2025 07/06/2020, 07/06/2019 TDAP/TD VACCINES (2 - Td or Tdap) 04/24/2032 Pneumococcal Vaccine 50+ Completed 022, 11/06/2018, 08/03/2017 Procedures Procedure Name Priority Date/Time Associated Diagnosis Comments SCANNED - IMAGING 06/03/2025 from Last 3 Months Results * IMAGING SCANNED (06/03/2025) Anatomical Region Laterality Modality Radiographic Riri ging Shannan ONEIL IMG DIAGNOSTIC IMAGING ORDERABLE S Final Result from Last 3 Months Insurance [employer] [facility] MEDICARE A & B Care Teams Manager Operating Relationship Specialty Start Date End Date Shannan Cassidy PA PCP - General Physician Boarder Machine 08/06/18
--- OUTSIDE RECORDS SUMMARY | 2025-06-13 10:57 | XMS_ITS | Clinical Summary ---
Author Organization Healthcare Address [address] [place] [address] Care Team Providers Care Ob Gyn Physician Assistant Name Role Phone KhanhShannan THAD Primary Care Provider [phone] Allergies Active Allergy Reactions Criticality Noted Date Comments Lisinopril Swelling High 06/02/2025 Pollen Extract Other - please docum ent in the comment field Low 06/02/2025 Medications cephalexin (Keflex) 500 MG capsuleIndicati ons:Fingertip amputation, initial encounter Take 1 capsule by mouth 2 times a day for 7 days. 14 capsule 06/02/2025 06/09/20 25 oxyCODONE (Roxicodone) 5 MG immediate release tablet Take 1 tablet by mouth every 6 hours as needed (pain) for up to 3 days. 12 tablet 06/02/2025 06/05/20 25 Encounters Date Type Department Care Team Description 06/02/2025 6:26 PM EDT - 06/02/2025 10:41 PM EDT Emergency [facility] Emergency Department [address] [place] [address] Jh Richey MD Fingertip amputation, initial encounter [...] Office Visit Will Myers [address] [place] [address] Joselyn Mattson PA [address] [address] Health Maintenance Due Date Last Done Comments [facility]-Depression Screening 1955 [facility]-Hepatitis C Screening 1955 [facility]-Medicare Annual Wellness (AWV) 1955 [facility]-Infant/Child/Adol SDOH Screenings 1955 [facility]- SDOH Screenings 1973 [facility]-Adult SDOH Screenings 1973 [facility]-IPV Vaccines (2 of 3 - Adult catch-up series) 07/18/1975 06/20/1975 CT Colonography 2000 Colonoscopy 2000 FIT-DNA 2000 FIT 2000 FOBT 2000 Sigmoidoscopy 2000 [facility]-Colorectal Cancer Screening 2000 [id number] Vaccine ( season) 2025 02/14/2022, 08/14/2021, 11/11/2020, Additional history exists [facility]-Influenza [...] Result from Last 3 Months Insurance MEDICARE [facility] Care Teams Ob Gyn Physician Assistant Relationship Specialty Start Date End Date Shannan Cassidy PA [address] [place] [address] PCP - General 02/16/21
--- OUTSIDE RECORDS SUMMARY | 2025-06-13 10:58 | XMS_ITS | Encounter Summary ---
Author Organization Healthcare Address [address] [place] [address] Care Team Providers Care Skip Hoist Engineer Name Role Phone KhanhShannan THAD Primary Care Provider [phone] Encounter Details Date Type Department Care Team [...] PM EDT Office Visit Will Myers [address] [place] [address] Joselyn Mattson, THAD [address] [address] documented as of this encounter Visit Diagnoses Not on filedocumented in this encounter Care Teams Skip Hoist Engineer Relationship Specialty Start Date End Date Shannan Cassidy PA [address] [place], [place] [id number] PCP - General 02/16/21 documented as of this encounter
== END 2025-06-13 23:59 | disposition home or self-care (01) ==
LOC: RAD 10:53
PROVIDERS: PCP Physician Assistant; Visit Provider Physician Assistant
DX: N28.1 Cyst of kidney, acquired (principal); R93.421 Abnormal radiologic findings on diagnostic imaging of right kidney
CPT/HCPCS: 76770

== ENCOUNTER 2025-06-14 14:52 | Outpatient (CLI) | payer MEDICARE, BC, OTHER, SELFPAY ==
--- OUTSIDE RECORDS SUMMARY | 2025-06-02 18:26 | XMS_ITS | Encounter Summary ---
Author Organization [facility] Address [address] [place] [address] Care Team Providers Care Cyber Defense Analyst Name Role Phone Shannan Cassidy Primary Care Provider [phone] Reason for Referral * Consultation (Routine) - Closed Specialty Diagnoses / Procedures Referred By Contact Referred To Contact Plastic Surgery / Hand Surgery Diagnoses Fingertip amputation, initial encounter Hua Alba MD [address] [address] Phone: tel: fax: Joselyn Mattson PA [address] [address] Phone: tel: fax: Referral ID Status Reason Start Date Expiration Date V isits Requested Visits Authorized [id number] Closed Specialty Services Required 06/02/2025 12/02/2026 1 1 Scheduling Instructions F/u with PK on 06/10/25 Reason for Visit * Reason Comments Finger Injury Encounter Details Date Type Department Care Team (Late st Contact Info) Description 06/02/2025 6:26 PM EDT - 06/02/2025 10:41 PM EDT Emergency [facility] Emergency Department [address] [place] [address] Jh Richey MD [address] [place] [address] Fingertip amputation, initial encounter (Primary Dx); Amputation [...] up to 3 days. 12 tablet 06/02/2025 06/13/2025 documented as of this encounter Miscellaneous Notes * ED Procedure Note - Lu Leavitt MD - 06/02/2025 8:17 PM EDT Images from the original note were not included. Procedures [facility] Department of Surgery Division of Plastic Surgery [...] from the original note were not included. [facility] Department of Surgery Division of Plastic [...] at approximately 1630 today. He presented to [facility] ED and then was transferred to ED [...] file Social Connections: Unknown (07/17/2023) Received from [facility] Family and Community Support Help with Day-to-Day Activities: Not on file Lonely or Isolated: Not on file Intimate Partner Violence: Unknown (07/17/2023) Received from [facility] Abuse Screen Unsafe at Home or Work/School: Not on file Feels Threatened by Someone?: Not on file Does Anyone Keep You from Contacting Others or Doint Things Outside the Home?: Not on file Physical Sign of Abuse Present: Not on file Housing Stability: Unknown (07/17/2023) Received from [facility] Housing Stability Current Living Arrangements: Not [...] PMHx significant for HTN who presented to [facility] with right long finger partial amputation after [...] been discussed with Dr. Alba, Attending Physician uL Leavitt MD Plastic and Reconstructive Surgery [1] [...] Entry 06/02/20252101 EDT lidocaine-EPINEPHrine (Xylocaine W/EPI) 1 %-1:079605 injection 20 mL -- Infiltration Canceled Entry [...] distress at the time of discharge. AVS (Yakut Snapshot) - Printed 06/02/2025 Follow-Ups: Follow up [...] comment field Alexandre Pierre DO Resident 06/03/25 4628 Cosigned by Jh Richey MD at 06/06/2025 [...] Care Team (Late st Contact Info) Description 07/08/2025 1:30 PM EDT Office Visit [facility] [address] [place] [address] Joselyn Mattson PA [address] [address] Scheduled Referrals Name Type Priority Associated Diagnoses [...] Henderson RN)1924 (Due) lidocaine-EPINEPHrine (Xylocaine W/EPI) 1 %-1:663091 injection 20 mL 20 mL, Infiltration, Once, 1 dose, On Joanna 06/02/25 at 2020, Routine, Sign 2101 (Canceled Entry - Provider: Ileana Henderson RN) documented in this encounter Care Teams Cyber Defense Analyst Relationship Specialty Start Date End Date Shannan Cassidy PA [address] [place] [address] PCP - General 02/16/21 documented as of this encounter
--- OUTSIDE RECORDS SUMMARY | 2025-06-13 12:48 | XMS_ITS | Encounter Summary ---
Author Organization Healthcare Address [address] [place] [address] Care Team Providers Care Equipment Operator/Laborer/Supervisor Name Role Phone Shannan Cassidy Primary Care Provider [phone] Encounter Details Date Type Department Care Team (Latest Contact Info) Description 06/13/2025 12:48 PM EDT - 06/13/2025 11:59 PM EDT Hospital Encounter [facility] [address], [address] [place] [address] Right hand pain Discharge Disposition: [...] PM EDT Office Visit [facility] [address] [place] [phone] Joselyn Mattson PA [address] [facility] [address] [place] [address] documented as of this encounter Procedures Procedure [...] documented as of this encounter Care Teams Equipment Operator/Laborer/Supervisor Relationship Specialty Start Date End Date Shannan Cassidy PA [address] [facility] [place] [address] PCP - General 02/16/21 documented as of this encounter
--- OUTSIDE RECORDS SUMMARY | 2025-06-13 12:50 | XMS_ITS | Encounter Summary ---
Author Organization Healthcare Address [address] [place] [address] Care Team Providers Care Machine Repairer Name Role Phone Shannan Cassidy Primary Care Provider [phone] Reason for Referral * Consultation (Routine) - Closed Specialty Diagnoses / Procedures Referred By Contac t Referred To Contact Occupational Therapy Diagnoses Amputation of finger, initial encounter Joselyn Mattson PA [address] [address] Phone: tel: fax: Referral ID Status Reason Start Date Expiration Date V isits Requested Visits Authorized [id number] Closed Specialty Services Required 06/13/2025 12/13/2026 1 1 Reason for Visit * Reason Comments Follow-up * Consultation (Routine) - Closed Specialty Diagnoses / Procedures Referred By Contact Referred To Contact Plastic Surgery / Hand Surgery Diagnoses Fingertip amputation, initial encounter Hua Alba MD [address] [address] Phone: tel: fax: Joselyn Mattson PA [address] [address] Phone: tel: fax: Referral ID Status Reason Start Date Expiration Date V isits Requested Visits Authorized [id number] Closed Specialty Services Required 06/02/2025 12/02/2026 1 1 Encounter Details Date Type Department Care Team (Late st Contact Info) Description 06/13/2025 12:50 PM EDT Office Visit [facility] [address] [place] [address] Joselyn Mattson PA [address] [place] [address] Right hand pain (Primary Dx); Amputation of [...] ILLNESS: Steve Song is a 69 y.o. yixxa-tkxh-hntuqrmk retired male who was seen in the [...] form which was reviewed and scanned into [employer]. Negative for bleeding disorders, clotting disorders or [...] Date BACK SURGERY N/A Back Surgery from [facility] [3] Current Outpatient Medications Medication Sig Dispense [...] PM EDT Office Visit [facility] [address] [place] [address] Joselyn Mattsno, THAD [address] [place] [address] Scheduled Referrals Name Type Priority Associated Diagnoses [...] documented as of this encounter Care Teams Machine Repairer Relationship Specialty Start Date End Date Shannan Cassidy PA [address] [place] [address] PCP - General 02/16/21 documented as of this encounter
--- OUTSIDE RECORDS SUMMARY | 2025-06-13 13:30 | XMS_ITS | Encounter Summary ---
Author Organization Healthcare Address [address] [place] [address] Care Team Providers Care Inorganic Chemistry Professor Name Role Phone Shannan Cassidy Primary Care Provider [phone] Reason for Visit * Consultation (Routine) - Closed Specialty Diagnoses / Procedures Referred By Kofi t Referred To Contact Occupational Therapy Diagnoses Amputation of finger, initial encounter Joselyn Mattson PA [address] [address] Phone: tel: fax: Referral ID Status Reason Start Date Expiration Date V isits Requested Visits Authorized [id number] Closed Specialty Services Required 06/13/2025 12/13/2026 1 1 Encounter Details Date Type Department Care Team (Late st Contact Info) Description 06/13/2025 1:30 PM EDT Office Visit TF [facility] Hand Therapy [address] [place] [address] María Delaney Amputation of finger, subsequent encounter [...] 06/13/25: Steve Song is a 69 y.o. tlrwu-upft-hroiunqd retired male who was seen in the [...] Procedures: Low Complexity using Standard OT Assessment (80639) OT Evaluation Orthotic management and/or training (49687): 15 minutes: Custom fabrication of right MF cap orthotic. Patient wore orthosis while in clinic for 5 minutes followed by skin check. No signs or symptoms of poor fit. . Patient was educated on orthotic wear, care, donning, doffing and precautions and this information was provided on a handout. Therapeutic Exercise (47923): 8 minutes of HEP as listed below: pt education over use of coban for edema management. Access Code: [email or web address] URL: [email or web address] Date: 06/13/2025 Prepared by: María Delaney Exercises - Wrist Tendon Gliding - 3-4 x daily - 7 x weekly - 2 sets - 10 reps - Hand AROM FDS [place] - 3-4 x daily - 7 x [...] Complexity: Low Complexity using Standard OT Assessment (61786). PLAN: Patient to return to clinic PRN [...] Date BACK SURGERY N/A Back Surgery from [place] [facility] documented in this encounter Plan of Treatment Upcoming Encounters Date Type Department Care Team (Late st Contact Info) Description 07/08/2025 1:30 PM EDT Office Visit [facility] [address] [place] [address] Joselyn Mattson PA [address] [address] documented as of this encounter Visit Diagnoses Diagnosis Amputation of finger, subsequent encounter- Primary documented in this encounter Additional Health Concerns Assessment Noted Time A Body Mass Index follow-up plan has been documented for the patient 06/13/2025 3:11 PM EDT documented as of this encounter Care Teams Inorganic Chemistry Professor Relationship Specialty Start Date End Date Shannan Cassidy PA [address] [place] [address] PCP - General 02/16/21 documented as of this encounter
--- OUTSIDE RECORDS SUMMARY | 2025-06-14 15:00 | XMS_ITS | Clinical Summary ---
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
--- OUTSIDE RECORDS SUMMARY | 2025-06-14 15:00 | XMS_ITS | Encounter Summary ---
Author Organization Healthcare Address [address] [place] [address] Care Team Providers Care Finishing Supervisor Plastic Sheets Name Role Phone KhanhShannan THAD Primary Care Provider [phone] Encounter Details Date Type Department Care Team [...] PM EDT Office Visit [facility] [address] [place] [address] Joselyn Mattson, THAD [address] [address] documented as of this encounter Visit Diagnoses Not on filedocumented in this encounter Care Teams Finishing Supervisor Plastic Sheets Relationship Specialty Start Date End Date Shannan Cassidy PA [address] [place], [place] [address] PCP - General 02/16/21 documented as of this encounter
--- OUTSIDE RECORDS SUMMARY | 2025-06-14 15:00 | XMS_ITS | Encounter Summary ---
Author Organization Healthcare Address [address] [place] [address] Care Team Providers Care Wine Fermenter Name Role Phone Shannan Cassidy Primary Care Provider [phone] Encounter Details Date Type Department Care Team (Latest Contact Info) Description 06/13/2025 Travel Social History Tobacco Use Types Packs/Day [...] PM EDT Office Visit [facility] [address] [place] [address] Joselyn Mattson PA [address] [phone] documented as of this encounter Visit Diagnoses Not on filedocumented in this encounter Additional Health Concerns Assessment Noted Time A Body Mass Index follow-up plan has been documented for the patient 06/13/2025 3:11 PM EDT documented as of this encounter Care Teams Wine Fermenter Relationship Specialty Start Date End Date Shannan Cassidy PA [address] [place] [address] PCP - General 02/16/21 documented as of this encounter
--- OUTSIDE RECORDS SUMMARY | 2025-06-14 15:00 | XMS_ITS | Clinical Summary ---
Author Organization Healthcare Address [address] [place] [address] Care Team Providers Care Screen Printing Machine Loader Unloader Name Role Phone KhanhShannan THAD Primary Care Provider Allergies Active Allergy Reactions Criticality Noted Date Comments Gramineae Pollens Unknown - Patient st ates they do not know rxn details Low 04/09/2024 Grass Pollen(K-O-R-T-Swt Jm) Other - please document in the comment field Low 06/13/2025 Lisinopril Swelling High 06/02/2025 Pollen Extract Other [...] up to 3 days. 12 tablet 06/02/2025 06/13/20 25 Active Problems No known active problems Encounters Date Type Department Care Team Description 06/13/2025 1:30 PM EDT Office Visit TF [facility] Hand Therapy [address] [place] [address] María Delaney Amputation of finger, subsequent encounter (Primary Dx) 06/13/2025 12:50 PM EDT Office Visit [facility] [address] [place] [address] Joselyn Mattson PA Right hand pain (Primary Dx); Amputation of finger, initial encounter 06/13/2025 12:48 PM EDT - 06/13/2025 11:59 PM EDT Hospital [facility] [address], [address] [place] [address] Right hand pain Discharge Disposition: Home or Self Care 06/13/2025 Travel 06/02/2025 6:26 PM EDT - 06/02/2025 10:41 PM EDT Emergency [facility] [address] [place] [address] Jh Richey MD Fingertip amputation, initial encounter [...] Pulse 68 06/13/2025 12:46 PM EDT Temperature 36.8 C (98.2 F) 06/02/2025 10:28 PM EDT Respiratory Rate 18 06/02/2025 10:28 PM EDT Oxygen Saturation 96% 06/13/2025 12:46 PM EDT Inhaled Oxygen Concentration - - Weight 98.4 kg (217 lb) 06/13/2025 12:46 PM EDT Height 165.1 cm (5' 5 ) 06/13/2025 12:46 PM EDT Body Mass Index 36.11 06/13/2025 12:46 PM EDT Plan of Treatment Upcoming Encounters Date Type Department Care Team (Late st Contact Info) Description 07/08/2025 1:30 PM EDT Office Visit [facility] [address] [place] [address] Joselyn Mattson PA [address] [place] [address] Health Maintenance Due Date Last Done Comments [facility]-Depression Screening 1955 [facility]-Hepatitis C Screening 1955 [facility]-Medicare Annual Wellness (AWV) 1955 [facility]-/Child/Adol SDOH Screenings 1955 [facility]- SDOH Screenings 1973 [facility]-Adult SDOH Screenings 1973 [facility]-IPV Vaccines (2 of 3 - Adult catch-up series) 07/18/1975 06/20/1975 CT Colonography 2000 Colonoscopy 2000 FIT-DNA 2000 FIT 2000 FOBT 2000 Sigmoidoscopy 2000 [facility]-Colorectal Cancer Screening 2000 [facility]-Abdominal Aortic Aneurysm (AAA) Screening 2020 [id number] Vaccine ( season) 2025 02/14/2022, 08/14/2021, 11/11/2020, [...] on patient's age to complete this topic [facility]-Obesity Intervention Completed 06/13/2025, 05/2025 HPV Vaccines Aged Out No longer eligi [...] 06/13/2025 12:52 PM EDT Right hand pain XR HAND RIGHT 3+ VIEWS STAT 06/02/2025 8:04 PM EDT from Last 3 Months Results * XR Fingers Right 2+ Views [...] Joselyn ONEIL IMG XR PROCEDURES Final Result * XR Hand Right 3+ Views (06/02/2025 [...] Result from Last 3 Months Insurance MEDICARE [facility] Care Teams Screen Printing Machine Loader Unloader Relationship Specialty Start Date End Date Shannan Cassidy PA [address] [place] [address] PCP - General 02/16/21
[2025-06-14 16:47] LABS: Blood Urea Nitrogen 11 mg/dl (9-20); Creatinine,Serum 1.10 mg/dl (0.66-1.25); Estimated Glomerular Filt Rate 66 ml/min (>60); GFR (African American) 80 ML/MIN (>60)
== END 2025-06-14 23:59 | disposition home or self-care (01) ==
LOC: LAB 14:57
PROVIDERS: PCP Physician Assistant; Visit Provider Physician Assistant
DX: N28.89 Other specified disorders of kidney and ureter (principal)
CPT/HCPCS: 36415; 82565; 84520

== ENCOUNTER 2025-06-15 06:38 | Outpatient (CLI) | payer MEDICARE, BC, OTHER, SELFPAY ==
--- OUTSIDE RECORDS SUMMARY | 2025-06-02 18:26 | XMS_ITS | Encounter Summary ---
Author Organization [facility] Address [address] [place] [address] Care Team Providers Care Hat Sizer Name Role Phone Shannan Cassidy Primary Care Provider [phone] Reason for Referral * Consultation (Routine) - Closed Specialty Diagnoses / Procedures Referred By Contact Referred To Contact Plastic Surgery / Hand Surgery Diagnoses Fingertip amputation, initial encounter Hua Alba MD [address] [address] Phone: tel: fax: Joselyn Mattson PA [address] [address] Phone: tel: fax: Referral ID Status Reason Start Date Expiration Date V isits Requested Visits Authorized [id number] Closed Specialty Services Required 06/02/2025 12/02/2026 1 1 Scheduling Instructions F/u with PK on 06/10/25 Reason for Visit * Reason Comments Finger Injury Encounter Details Date Type Department Care Team (Late st Contact Info) Description 06/02/2025 6:26 PM EDT - 06/02/2025 10:41 PM EDT Emergency [facility] Emergency Department [address] [place] [address] Jh Richey MD [address] [place] [address] Fingertip amputation, initial encounter (Primary Dx); Amputation [...] the original note were not included. Procedures [facility] Department of Surgery Division of Plastic Surgery [...] from the original note were not included. [facility] Department of Surgery Division of [...] Unknown (07/17/2023) Received from [facility] Family and Community Support Help with Day-to-Day Activities: Not on file Lonely or Isolated: Not on file Intimate Partner Violence: Unknown (07/17/2023) Received from [facility] Abuse Screen Unsafe at Home or Work/School: Not on file Feels Threatened by Someone?: Not on file Does Anyone Keep You from Contacting Others or Doint Things Outside the Home?: Not on file Physical Sign of Abuse Present: Not on file Housing Stability: Unknown (07/17/2023) Received from [facility] Housing Stability Current Living Arrangements: Not [...] PMHx significant for HTN who presented to [facility] with right long finger partial [...] and Affect: Mood normal. Behavior: Behavior normal. [place] Coma Scale Score: 15 ED Course & [...] Entry 06/02/20252101 EDT lidocaine-EPINEPHrine (Xylocaine W/EPI) 1 %-1:065762 injection 20 mL -- Infiltration Canceled Entry [...] distress at the time of discharge. AVS (Nepali Snapshot) - Printed 06/02/2025 Follow-Ups: Follow up [...] comment field Alexandre Pierre DO Resident 06/03/25 [id number] Cosigned by Jh Richey MD at 06/06/2025 [...] PM EDT Office Visit [facility] [address] [place] [address] Joselyn Mattson PA [address] [address] Scheduled Referrals Name Type Priority Associated Diagnoses [...] Henderson RN)1924 (Due) lidocaine-EPINEPHrine (Xylocaine W/EPI) 1 %-1:139323 injection 20 mL 20 mL, Infiltration, Once, 1 dose, On Joanna 06/02/25 at 2020, Routine, Sign 2101 (Canceled Entry - Provider: Ileana Henderson RN) documented in this encounter Care Teams Hat Sizer Relationship Specialty Start Date End Date Shannan Csasidy PA [address] [place] [address] PCP - General 02/16/21 documented as of this encounter
--- OUTSIDE RECORDS SUMMARY | 2025-06-13 12:48 | XMS_ITS | Encounter Summary ---
Author Organization Healthcare Address [address] [place] [address] Care Team Providers Care Health Care Social Worker Name Role Phone Shannan Cassidy Primary Care Provider [phone] Encounter Details Date Type Department Care Team (Latest Contact Info) Description 06/13/2025 12:48 PM EDT - 06/13/2025 11:59 PM EDT Hospital Encounter [facility] [address], [address] [place] [address] Right hand pain Discharge Disposition: Home or Self Care Social History Tobacco Use Types Packs/Day Years Used Date Smoking Tobacco: Former Cigarettes Smokeless Tobacco: Never Alcohol Use Standard Drinks/Week Comments No 0 (1 standard drink = 0.6 oz pur e alcohol) Sex and Gender Information Value Date Recorded Sex Assigned at Not on file Legal Sex Male 7:02 PM EDT Gender Identity Not on file Sexual Orientation Not on file documented as of this encounter Plan of Treatment Upcoming Encounters Date Type Department Care Team (Late st Contact Info) Description 07/08/2025 1:30 PM EDT Office Visit [facility] [address] [place] [phone] Joselyn Mattson PA [address] [facility] [address] [place] [address] documented as of this encounter Procedures Procedure Name Priority Date/Time Associated Diagnosis Comments XR FINGERS RIGHT 2+ VIEWS Routine 06/13/2025 12:52 PM EDT Right hand pain documented in this encounter Results * XR Fingers Right 2+ Views (06/13/2025 12:52 PM EDT) Anatomical Region Laterality Modality Upper Extremities, Fingers Right Digit al Radiography Impressions 06/13/2025 1:06 PM EDT Postsurgical changes in the right long finger as above described. CRITICAL RESULT: No. COMMUNICATION: Per this written report. Drafted by Papo Boss MD on 06/13/2025 1:05 PM Final report signed by Papo Boss MD on 06/13/2025 1:06 PM Narrative 06/13/2025 1:06 PM EDT CLINICAL INDICATION: pain TECHNIQUE: XR FINGERS RIGHT 2+ VIEWS COMPARISON: June 03, 2025 FINDINGS: Right middle finger images were obtained. There has been interval partial amputation of the long finger at the level of the DIP joint. Tiny densities at the surgical bed. Diffuse soft tissue swelling. Procedure Note Papo Verma MD - 06/13/2025 CLINICAL INDICATION: pain TECHNIQUE: XR FINGERS RIGHT 2+ VIEWS COMPARISON: June 03, 2025 FINDINGS: Right middle finger images were obtained. There has been interval partial amputation of the long finger at the levelof the DIP joint. Tiny densities at the surgical bed. Diffuse soft tissueswelling. IMPRESSION: Postsurgical changes in the right long finger as above described. CRITICAL RESULT: No. COMMUNICATION: Per this written report. Drafted by Papo Boss MD on 06/13/2025 1:05 PM Final report signed by Papo Boss MD on 51:06 PM Joselyn ONEIL IMG XR PROCEDURES Final Result documented in this encounter Visit Diagnoses Diagnosis Right hand pain Pain in soft tissues of limb documented in this encounter Additional Health Concerns Assessment Noted Time A Body Mass Index follow-up plan has been documented for the patient 06/13/2025 3:11 PM EDT documented as of this encounter Care Teams Health Care Social Worker Relationship Specialty Start Date End Date Shannan Cassidy PA [address] [facility] [place] [address] PCP - General 02/16/21 documented as of this encounter
--- OUTSIDE RECORDS SUMMARY | 2025-06-13 12:50 | XMS_ITS | Encounter Summary ---
Author Organization Healthcare Address [address] [place] [address] Care Team Providers Care Master Esthetician Name Role Phone Shannan Cassidy Primary Care Provider [phone] Reason for Referral * Consultation (Routine) - Closed Specialty Diagnoses / Procedures Referred By Contac t Referred To Contact Occupational Therapy Diagnoses Amputation of finger, initial encounter Joselyn Mattson PA [address] [address] Phone: tel: fax: Referral ID Status Reason Start Date Expiration Date V isits Requested Visits Authorized [id number] Closed Specialty Services Required 06/13/2025 12/13/2026 1 1 Reason for Visit * Reason Comments Follow-up * Consultation (Routine) - Closed Specialty Diagnoses / Procedures Referred By Contact Referred To Contact Plastic Surgery / Hand Surgery Diagnoses Fingertip amputation, initial encounter Hua Alba MD [address] [address] Phone: tel: fax: Joselyn Mattson PA [address] [address] Phone: tel: fax: Referral ID Status Reason Start Date Expiration Date V isits Requested Visits Authorized [id number] Closed Specialty Services Required 06/02/2025 12/02/2026 1 1 Encounter Details Date Type Department Care Team (Late st Contact Info) Description 06/13/2025 12:50 PM EDT Office Visit [facility] [address] [place] [address] Joselyn Mattson PA [address] [place] [address] Right hand pain (Primary Dx); Amputation of finger, initial encounter Social History Tobacco Use Types Packs/Day Years Used Date Smoking Tobacco: Former Cigarettes Smokeless Tobacco: Never Tobacco Cessation:Counseling Given: Not Answered Alcohol Use Standard Drinks/Week Comments No 0 (1 standard drink = 0.6 oz pur e alcohol) Sex and Gender Information Value Date Recorded Sex Assigned at Not on file Legal Sex Male 7:02 PM EDT Gender Identity Not on file Sexual Orientation Not on file documented as of this encounter Last Filed Vital Signs Vital Sign Reading Time Taken Comments Blood Pressure 136/80 06/13/2025 12:46 PM EDT Pulse 68 06/13/2025 12:46 PM EDT Temperature - - Respiratory Rate - - Oxygen Saturation 96% 06/13/2025 12:46 PM EDT Inhaled Oxygen Concentration - - Weight 98.4 kg (217 lb) 06/13/2025 12:46 PM EDT Height 165.1 cm (5' 5 ) 06/13/2025 12:46 PM EDT Body Mass Index 36.11 06/13/2025 12:46 PM EDT documented in this encounter Miscellaneous Notes * Progress Notes - Joselyn Mattson PA - 06/13/2025 12:50 PM EDT Hand Surgery Clinic Note CC: Finger amputation HISTORY OF PRESENT ILLNESS: Steve Song is a 69 y.o. [id number] retired male who was seen in the ED 06/02/2025 secondary to right long fingertip injury he did slammed his finger in a bedroom door. Revision amputationwas performed at bedside. Patient is using a light dressing PAST MEDICAL HISTORY: Past Medical History[1] PAST SURGICAL HISTORY: Surgical History[2] MEDICATIONS: Current Medications[3] ALLERGIES: Allergies[4] SOCIAL HISTORY: Social History[5] FAMILY HISTORY Family history is as noted on the history intake form which was reviewed and scanned into [employer]. Negative for bleeding disorders, clotting disorders or anesthesia issues. REVIEW OF SYSTEMS ROS: 14 point review of systems was completed with the patient and documented on written assessmentat this time and was negative except as noted in the HPI. PHYSICAL EXAM: GEN: Healthy appearing, alert, no acute distress SKIN: Normal color, texture; no rashes or lesions HEENT: Normocephalic, no signs of trauma, anicteric, neck with normal ROM PULM: Normal respiratory effort on room air, no audible stridor or wheeze CV: Right long finger is well-perfused PSYCH: Pleasant and normal affect NEURO: Alert and oriented x 3. Cranial nerves grossly intact, speech intact EXTREMITY: Active range of motion of the right long finger is preserved but it is stiff secondary to pain and edema. It looks like the skin at the tip is darkened, but not totally black RESULTS: IMAGING: ASSESSMENT/PLAN: Steve Song is a 69 y.o. year-old male presenting for amputation injury of the right long finger.I have talked with the patient in regards to the healing. I have talked with him that the distal skin will peel away like a blister at some point. I have sent him to Occupational therapy today for a home program so that he can regain his motion and work on some edema control. I will see the patient back in about a month and hopeful discharge him from clinic at that time.. [1] Past Medical History: Diagnosis Date Personal history of other diseases of the circulatory system History of hypertension Personal history of other diseases of the nervous system and sense organs History of obstructive sleep apnea Personal history of other endocrine, nutritional and metabolic disease History of hyperlipidemia [2] Past Surgical History: Procedure Laterality Date BACK SURGERY N/A Back Surgery from [facility] [3] Current Outpatient Medications Medication Sig Dispense Refill cephalexin (Keflex) 500 MG capsule Take 1 capsule by mouth 2 times a day for 7 days. 14 capsule 0 No current facility-administered medications for this visit. [4] Allergies Allergen Reactions Lisinopril Swelling Pollen Extract Other - please document in the comment field [5] Social History Tobacco Use Smoking status: Former Substance Use Topics Alcohol use: No documented in this encounter Plan of Treatment Upcoming Encounters Date Type Department Care Team (Late st Contact Info) Description 07/08/2025 1:30 PM EDT Office Visit [facility] [address] [place] [address] Joselyn Mattson, THAD [address] [place] [address] Scheduled Referrals Name Type Priority Associated Diagnoses Order Schedule Ambulatory referral to Hand Therapy Outpatient Referral Routine Amputation of finger, initial encounter 1 Occurrences starting 06/13/2025 until 12/15/2026 documented as of this encounter Results * XR Fingers Right [...] this encounter Visit Diagnoses Diagnosis Right hand pain- Primary Pain in soft tissues of limb Amputation of finger, initial encounter Right hand pain Pain in soft tissues of limb documented in this encounter Additional Health Concerns Assessment Noted Time A Body Mass Index follow-up plan has been documented for the patient 06/13/2025 3:11 PM EDT documented as of this encounter Care Teams Master Esthetician Relationship Specialty Start Date End Date Shannan Cassidy PA [address] [place] [address] PCP - General 02/16/21 documented as of this encounter
--- OUTSIDE RECORDS SUMMARY | 2025-06-13 13:30 | XMS_ITS | Encounter Summary ---
Author Organization Healthcare Address [address] [place] [address] Care Team Providers Care Medical Records Assistant Name Role Phone Shannan Cassidy Primary Care Provider [phone] Reason for Visit * Consultation (Routine) - Closed Specialty Diagnoses / Procedures Referred By Kofi t Referred To Contact Occupational Therapy Diagnoses Amputation of finger, initial encounter Joselyn Mattson PA [address] [address] Phone: tel: fax: Referral ID Status Reason Start Date Expiration Date V isits Requested Visits Authorized [id number] Closed Specialty Services Required 06/13/2025 12/13/2026 1 1 Encounter Details Date Type Department Care Team (Late st Contact Info) Description 06/13/2025 1:30 PM EDT Office Visit [facility] Hand Therapy [address] [place] [address] María Delaney Amputation of finger, subsequent encounter (Primary Dx) Social History Tobacco Use Types Packs/Day Years [...] on file documented as of this encounter Miscellaneous Notes * Progress Notes - María Delaney - 06/13/2025 1:30 PM EDT Occupational Therapy Evaluation for Custom Orthotic Note Date: 06/13/25 Name: Steve Song : 1955 Past Medical History[1] Surgical History[2] Diagnosis: Encounter Diagnosis Name Primary? Amputation of finger, subsequent encounter Yes Time in: 1:45 pm Time out: 2:08 pm SUBJECTIVE: David ONEIL note from 06/13/25: Steve Song is a 69 y.o. jbxfh-afjo-tvkxehye retired male who was seen in the ED 06/02/2025 secondary to right long fingertip injury he did slammed his finger in a bedroom door. Revision amputation was performed at bedside. Patient is using a light dressing Pain: 310 location: right Middle finger. Description: aching and sharp/stabbing OBJECTIVE: Quick DASH score: 25% AROM UE ROM is not symmetrical Edema: noted in middle finger Skin Integrity Stitches present along tip of MF. No signs or symptoms Procedures: Low Complexity using Standard OT Assessment (01075) OT Evaluation Orthotic management and/or training (67781): 15 minutes: Custom fabrication of right MF cap orthotic. Patient wore orthosis while in clinic for 5 minutes followed by skin check. No signs or symptoms of poor fit. . Patient was educated on orthotic wear, care, donning, doffing and precautions and this information was provided on a handout. Therapeutic Exercise (33888): 8 minutes of HEP as listed below: pt education over use of coban for edema management. Access Code: [email or web address] URL: [email or web address] Date: 06/13/2025 Prepared by: María Delaney Exercises - Wrist Tendon Gliding - 3-4 x daily - 7 x weekly - 2 sets - 10 reps - Hand AROM FDS [place] - 3-4 x daily - 7 x weekly - 2 sets - 10 reps - Hand AROM PIP Blocking - 3-4 x daily - 7 x weekly - 2 sets - 15 reps ASSESSMENT: Provider orders reviewed. Patient evaluated for appropriateness of orthotic. Orthotic deemed to appropriate at this time. Good custom orthotic fit and patient Verbalized and Demonstrated understanding of orthotic wear, care, and education. Complexity: Low Complexity using Standard OT Assessment (46286). PLAN: Patient to return to clinic PRN for orthotic modification. , Patient discharged with HEP, and Patient to follow up with physician as instructed. This orthosis is medically necessary and required as part of this patients recovery. [1] Past Medical History: Diagnosis Date Personal history of other diseases of the circulatory system History of hypertension Personal history of other diseases of the nervous system and sense organs History of obstructive sleep apnea Personal history of other endocrine, nutritional and metabolic disease History of hyperlipidemia [2] Past Surgical History: Procedure Laterality Date BACK SURGERY N/A Back Surgery from [facility] documented in this encounter Plan of Treatment Upcoming Encounters Date Type Department Care Team (Late st Contact Info) Description 07/08/2025 1:30 PM EDT Office Visit [facility] [address] [place] [address] Joselyn Mattson PA [address] [address] documented as of this encounter Visit Diagnoses Diagnosis Amputation of finger, subsequent encounter- Primary documented in this encounter Additional Health Concerns Assessment Noted Time A Body Mass Index follow-up plan has been documented for the patient 06/13/2025 3:11 PM EDT documented as of this encounter Care Teams Medical Records Assistant Relationship Specialty Start Date End Date Shannan Cassidy PA [address] [place] [address] PCP - General 02/16/21 documented as of this encounter
--- NOTE | 2025-06-15 06:41 | MR_ITS ---
FINAL REPORT TECHNIQUE: Multiplanar and multisequence imaging was obtained before and after the intravenous injection of gadolinium contrast. CLINICAL HISTORY: RIGHT RENAL MASS. abnormal mr and us. FINDINGS: Liver is diffusely fatty infiltrated. No focal liver lesion is identified. Gallbladder is present. There is a T1, hypointense lesion in the posterior spleen measuring 3.8 cm which is also T2 hypointense. No adrenal nodules are identified. Pancreas is unremarkable. There is a T1 hypointense, T2 hyperintense lesion in the posterior right kidney measuring 4 cm. There is no left renal mass. There is no hydronephrosis. GI tract demonstrates no acute abnormality. There is no ascites or lymphadenopathy. Postcontrast imaging demonstrates heterogeneous enhancement of the right renal mass consistent with solid mass likely representing a renal cell carcinoma. There is no involvement of the right renal vein. There is also some enhancement of the splenic lesion. Remaining solid abdominal organs demonstrate normal contrast-enhancement. IMPRESSION: 1. Solid right renal mass most consistent with renal cell carcinoma. 2. Solitary splenic mass demonstrating contrast-enhancement which does not represent a cyst but is otherwise indeterminate. Metastatic disease not excluded. Consider PET/CT for further evaluation. Reviewed, Interpreted and Dictated by Cathi Valentine MD Transcribed by Justine Osborne Authenticated and [facility]
--- OUTSIDE RECORDS SUMMARY | 2025-06-15 06:41 | XMS_ITS | Clinical Summary ---
Author Organization Healthcare Address [address] [place] [address] Care Team Providers Care Fittings Tightener Name Role Phone KhanhShannan THAD Primary Care Provider [phone] Allergies Active Allergy Reactions Criticality Noted Date [...] 06/13/2025 1:30 PM EDT Office Visit TF [facility] Hand Therapy [address] [place] [address] María Delaney Amputation of finger, subsequent encounter (Primary Dx) 06/13/2025 12:50 PM EDT Office Visit [facility] [address] [place] [address] Joselyn Mattson PA Right hand pain (Primary Dx); Amputation of finger, initial encounter 06/13/2025 12:48 PM EDT - 06/13/2025 11:59 PM EDT Hospital [facility] X[facility] [address] [place] [address] Right hand pain Discharge Disposition: Home or Self Care 06/13/2025 Travel 06/02/2025 6:26 PM EDT - 06/02/2025 10:41 PM EDT Emergency [facility] Emergency [facility] [address] [place] [address] Jh Richey MD Fingertip amputation, initial encounter [...] Office Visit [facility] [address] [place] [address] Joselyn Mattson PA [address] [place] [address] Health Maintenance Due Date Last Done Comments [...] 2000 [facility]-Abdominal Aortic Aneurysm (AAA) Screening 2020 [id number] Vaccine ( season) 2025 02/14/2022, 08/14/2021, 11/11/2020, [...] Result from Last 3 Months [place] [address] [facility] EM[facility]PART[facility] Care Teams Fittings Tightener Relationship Specialty Start Date End Date Shannan Cassidy PA [address] [place] [address] PCP - General 02/16/21
--- OUTSIDE RECORDS SUMMARY | 2025-06-15 06:41 | XMS_ITS | Clinical Summary ---
[facility] [address] [place] [address] Care Team Providers Care Potato Peeler Name Role Phone Shannan Cassidy Primary Care Provider [phone] Allergies Active Allergy Reactions Criticality Noted Date [...] Active vitamin D (ERGOCALCIFEROL ) 1.25 MG (74949 UT) capsule capsule TAKE 1 CAPSULE BY [...] (07/20/2019): Added automatically from request for surgery [id number] Chronic bilateral low back pain with bilateral s ciatica 08/10/2018 Overview (08/10/2018): Added automatically from request for surgery [id number] Family History Medical History Relation Name Comments Cancer Maternal Uncle 1 Dioni Song Lung cancer Cancer Maternal Uncle 2 Reed Comer sr. Colon C ancer Alcohol abuse Mother Tameka Song of schro sis of the liver Hyperlipidemia Sister 1 Audra Song Medication Hyperlipidemia Sister 2 Mindi Song Medication Asthma Son Steve Snog Jr. Grown out of Relation Name Status [...] Last 3 Months Insurance [facility] [employer] MEDICARE A & B Care Teams Potato Peeler Relationship Specialty Start Date End Date Shannan Cassidy PA PCP - General Physician Sales And Service Engineer 08/06/18
--- OUTSIDE RECORDS SUMMARY | 2025-06-15 06:41 | XMS_ITS | Encounter Summary ---
Author Organization Healthcare Address [address] [place] [address] Care Team Providers Care Cloth Coverer Name Role Phone Shannan Cassidy Primary Care Provider [phone] Encounter Details Date Type Department Care Team [...] PM EDT Office Visit [facility] [address] [place] [address] Joselyn Mattson PA [address] [phone] documented as of this encounter Visit Diagnoses Not on filedocumented in this encounter Additional Health Concerns Assessment Noted Time A Body Mass Index follow-up plan has been documented for the patient 06/13/2025 3:11 PM EDT documented as of this encounter Care Teams Cloth Coverer Relationship Specialty Start Date End Date Shannan Cassidy PA [address] [place] [address] PCP - General 02/16/21 documented as of this encounter
--- OUTSIDE RECORDS SUMMARY | 2025-06-15 06:41 | XMS_ITS | Encounter Summary ---
Author Organization Healthcare Address [address] [place] [address] Care Team Providers Care Informatics Developer Name Role Phone KhanhShannan THAD Primary Care Provider [phone] Encounter Details Date Type Department Care Team [...] PM EDT Office Visit [facility] [address] [place] [address] Joselyn Mattson, THAD [address] [address] documented as of this encounter Visit Diagnoses Not on filedocumented in this encounter Care Teams Informatics Developer Relationship Specialty Start Date End Date Shannan Cassidy PA [address] [place], [place] [phone] PCP - General 02/16/21 documented as of this encounter
[2025-06-15] MEDS: SODIUM CHLORIDE 0.9% 10ML SYR (RAD ONLY) 10 ML IV (07:50)
[2025-06-15] MEDS: GADOTERIDOL INJ 20ML SYRINGE 19 ML IV (07:50)
[2025-06-15] MEDS: 0.9 % SODIUM CHLORIDE 50 ML VIAL 20 ML IV (07:50)
== END 2025-06-15 23:59 | disposition home or self-care (01) ==
LOC: RAD 06:39
PROVIDERS: PCP Physician Assistant; Visit Provider Physician Assistant
DX: N28.89 Other specified disorders of kidney and ureter (principal); D73.89 Other diseases of spleen
CPT/HCPCS: 74183; A9576

== ENCOUNTER 2025-08-03 16:00 | Outpatient (RCR) | payer MEDICARE, BC, OTHER, SELFPAY | END 2025-08-03 23:59 | disposition home or self-care (01) | LOC: OT 16:00 | PROVIDERS: PCP Physician Assistant; Visit Provider Physician Assistant Medical | DX: Z47.89 Encounter for other orthopedic aftercare (principal); Z89.029 Acquired absence of unspecified finger(s) | CPT/HCPCS: 97110; 97140; 97166 ==

== ENCOUNTER 2025-08-03 17:00 | Outpatient (RCR) | payer MEDICARE, BC, OTHER, SELFPAY | END 2025-08-03 23:59 | disposition home or self-care (01) | LOC: PT 17:00 | PROVIDERS: Visit Provider Neurological Surgery | DX: M54.42 Lumbago with sciatica, left side (principal); M54.41 Lumbago with sciatica, right side | CPT/HCPCS: 97110; 97163; 97530 ==